=== PATIENT | female | born 1995 | race African-American/Black ===

== ENCOUNTER 2016-10-24 15:06 | Emergency (ER) | payer SELFPAY ==
[~2016-10-24] VITALS: Ht 175.3 cm; Wt 97.5 kg
[~2016-10-24 15:06] MED LIST: ACET-704 PO; CIPR500T94 PO; HYDR-971 PO; METO10TA81 PO; METR500T PO; METR500T4 PO; NAPR500T PO; NITR100C62 PO; OMEP20CA9 PO; ONDA-35 PO; ONDA4TAB10 SL; PNV1TABL25 PO; PROM25TA10 PO; SULF1TAB24 PO; TRAM-29 PO
[2016-10-24 15:28] LABS: BILIRUBIN,URINE NEGATIVE (NEG); GLUCOSE,URINE NEGATIVE (NEG); NITRITE,URINE NEGATIVE (NEG); PH,URINE 6.5; PROTEIN,URINE NEGATIVE (NEG-TRACE); UROBILINOGEN,URINE 0.2 mg/dL (0.2 mg/dL)
[2016-10-24] MEDS ORDERED: ONDANSETRON ODT 4 MG TAB.RAPDIS PO ONE (15:30)
[2016-10-24] MEDS ORDERED: PYRIDOXINE 50 MG TABLET. PO ONE (15:30)
[2016-10-24] MEDS ORDERED: DOXYLAMINE SUCCINATE 25 MG TABLET PO ONE (15:30)
[2016-10-24 15:31] LABS: NEG OBC UR NEG; POS OBC UR POS
[2016-10-24 15:35] LABS: BACTERIA,URINE FEW /HPF (0-FEW); RBC,URINE 0 /HPF (0-2); SQUAMOUS EPITHELIAL CELL,UR FEW /LPF; WBC,URINE 0 /HPF (0-4)
--- NOTE | 2016-10-24 16:17 | PHYS DOC ---
Past Medical History Past Medical History: No Pertinent History Past Surgical History: No Surgical History Alcohol Use: None Drug Use: None Adult General Chief Complaint Chief Complaint: VOMITING IN HPI HPI 20-year-old female presenting the emergency department with nausea with one episode of vomiting. She reports it being of stomach contents. She also endorses pain on urination. The pain is sharp mild worse with urination and without alleviating factors. She reports being approximately 8 weeks . This is her third . She has 2 living children. They were born at full- term. She previously had an ultrasound and recommended repeat ultrasound. She denies any abdominal pain. She denies chest pain or shortness of breath. Review of Systems Review of Systems She denies vaginal bleeding abdominal pain. She denies fevers chills chest pain or shortness of breath. All other review of systems is negative unless otherwise noted in history of present illness. Current Medications Current Medications Current Medications Medications (Trade) Dose Ordered Sig/Christi Start Time Stop Time Status Last Admin Dose Admin Doxylamine Succinate (Unisom) 25 mg 1X ONCE 10/24/16 15:30 10/24/16 15:31 DC 10/24/16 15:53 25 MG Ondansetron HCl (Zofran Odt) 4 mg 1X ONCE 10/24/16 15:30 10/24/16 15:31 DC 10/24/16 15:44 4 MG Pyridoxine HCl (Vitamin B-6) 25 mg 1X ONCE 10/24/16 15:30 10/24/16 15:31 DC 10/24/16 15:53 25 MG Allergies Allergies Allergies Coded Allergies Type Severity Reaction Last Updated Verified peanut Allergy Intermediate itching 10/16/16 Yes Physical Exam Physical Exam Constitutional: Well developed, well nourished, no acute distress, non-toxic appearance. HENT: Normocephalic, atraumatic, bilateral external ears normal, oropharynx moist, no oral exudates, nose normal. Eyes: PERRLA, EOMI, conjunctiva normal, no discharge. Neck: Normal range of motion, no tenderness, supple, no stridor. [] Cardiovascular:Heart rate regular rhythm, no murmur Lungs & Thorax: Bilateral breath sounds clear to auscultation [] Abdomen: Bowel sounds normal, soft, no tenderness, no masses, no pulsatile masses. Skin: Warm, dry, no erythema, no rash. Back: No tenderness, no CVA tenderness. [] Extremities: No tenderness, no cyanosis, no clubbing, ROM intact, no edema. Neurologic: Alert and oriented X 3, normal motor function, normal sensory function, no focal deficits noted. [] Psychologic: Affect normal, judgement normal, mood normal. [] Current Patient Data Vital Signs Vital Signs Date Time Temp Pulse Resp B/P Pulse Ox O2 Delivery O2 Flow Rate FiO2 10/24/16 17:09 79 16 107/53 100 Room Air 10/24/16 15:32 98.8 98.8 Lab Values Laboratory Tests Test 10/24/16 15:14 10/24/16 16:00 Urine Collection Type Unknown Urine Color Yellow Urine Clarity Clear Urine pH 6.5 Urine Specific [place] <=1.005 Urine Protein Negativemg/dL (NEG-TRACE) Urine Glucose (UA) Negativemg/dL (NEG) Urine Ketones (Stick) Negativemg/dL (NEG) Urine Blood Negative (NEG) Urine Nitrite Negative (NEG) Urine Bilirubin Negative (NEG) Urine Urobilinogen Dipstick 0.2mg/dL (0.2 mg/dL) Urine Leukocyte Esterase Negative (NEG) Urine RBC 0/HPF (0-2) Urine WBC 0/HPF (0-4) Urine Squamous Epithelial Cells Few/LPF Urine Bacteria Few/HPF (0-FEW) Urine Test Positive (NEG) White Blood Count 13.0x10^3/uL (4.0-11.0) H Red Blood Count 4.71x10^6/uL (3.50-5.40) Hemoglobin 13.2g/dL (12.0-15.5) Hematocrit 40.4% (36.0-47.0) Mean Corpuscular Volume 86fL (79-100) Mean Corpuscular Hemoglobin 28pg (25-35) Mean Corpuscular Hemoglobin Concent 33g/dL (31-37) Red Cell Distribution Width 13.7% (11.5-14.5) Platelet Count 250x10^3/uL (140-400) Neutrophils (%) (Auto) 64% (31-73) Lymphocytes (%) (Auto) 30% (24-48) Monocytes (%) (Auto) 5% (0-9) Eosinophils (%) (Auto) 1% (0-3) Basophils (%) (Auto) 0% (0-3) Neutrophils # (Auto) 8.3x10^3uL (1.8-7.7) H Lymphocytes # (Auto) 3.9x10^3/uL (1.0-4.8) Monocytes # (Auto) 0.7x10^3/uL (0.0-1.1) Eosinophils # (Auto) 0.1x10^3/uL (0.0-0.7) Basophils # (Auto) 0.0x10^3/uL (0.0-0.2) Maternal Serum HCG Beta Subunit 94427oUF/mL (0-6) H Sodium Level 138mmol/L (136-145) Potassium Level 3.9mmol/L (3.5-5.1) Chloride Level 104mmol/L (98-107) Carbon Dioxide Level 26mmol/L (21-32) Anion Gap 8 (6-14) Blood Urea Nitrogen 6mg/dL (7-20) L Creatinine 0.6mg/dL (0.6-1.0) Estimated GFR (Cockcroft-Gault) 152.7 Glucose Level 81mg/dL (70-99) Calcium Level 8.8mg/dL (8.5-10.1) Total Bilirubin 0.3mg/dL (0.2-1.0) Direct Bilirubin 0.1mg/dL (0.0-0.2) Aspartate Amino Transferase (AST) 12U/L (15-37) L Alanine Aminotransferase (ALT) 13U/L (14-59) L Alkaline Phosphatase 53U/L (46-116) Total Protein 7.1g/dL (6.4-8.2) Albumin 3.6g/dL (3.4-5.0) Lipase 135U/L (73-393) Laboratory Tests 10/24/16 16:00 Laboratory Tests 10/24/16 16:00 EKG EKG [] Radiology/Procedures Radiology/Procedures [facility] [address] [place] [address] IMAGING REPORT Signed PATIENT: MARK THORNTON ACCOUNT: [id number] : 1995 LOCATION: ER AGE: 20 SEX: F EXAM STATUS: REG ER ORD. PHYSICIAN: DANIELLE PINTO MD REASON: nausea vomiting in preg, r/o ectopic PROCEDURE: PREG 1ST TRIMESTER INDICATION: Vomiting and COMPARISON: None TECHNIQUE: Transabdominal grayscale and spectral doppler ultrasound images are obtained of the pelvis. FINDINGS: Dimensions are in mm Uterus: 98 x 82 x 76 Endometrial Stripe: Intrauterine is identified with crown-rump length of 14 millimeters and heart rate of 163 Right ovary: 27 x 21 x 14 Left ovary: 42 x 30 x 28 Vascular flow is identified to the bilateral ovaries. IMPRESSION: Intrauterine is identified with estimated gestational age of 7 weeks and 5 days with estimated due date of 06/07/2017. There is a positive heart rate identified. Recommend routine anomaly screening at 18-22 weeks. Electronically signed by: Sravanthi Das (Oct 24, 2016 17:04:59) DICTATED and SIGNED BY: SRAVANTHI DAS MD DATE: 10/24/16 1709 CC: DANIELLE PINTO MD; NO PCP ~ [] Course & Med Decision Making Course & Med Decision Making Pertinent Labs and Imaging studies reviewed. (See chart for details) 20-year-old female presenting the emergency department with pain on urination and nausea with vomiting. On evaluation patient's vital signs were unremarkable. Physical exam was unremarkable. The patient is given paradoxical and doxylamine along with ondansetron for nausea control. Urine analysis shows positive tests not suggestive of infection. A few bacteria present. Blood work otherwise unremarkable. Ultrasound demonstrated a viable single fetus intrauterine . No evidence of ectopic present. She was subsequently discharged home on Keflex for bacteria in the urine. She was to follow-up with Dr. Quiroz over the next 3-5 days. Dragon Disclaimer Dragon Disclaimer This electronic medical record was generated, in whole or in part, using a voice recognition dictation system. Departure Departure Impression: Primary Impression: Nausea/vomiting in Disposition: HOME, SELF-CARE Condition: STABLE Referrals: NO PCP (PCP) COCO QUIROZ Jr, MD Patient Instructions: Nausea and Vomiting, [id number] Additional Instructions: Thank you for allowing us to participate in your care today. Followup with Dr. Quiroz in 3-5 days. if your symptoms do not improve. If you do not have a primary care provider you can ask for a list of our primary care providers. Return to the emergency department you have any new or concerning findings. This should be evaluated by the primary care physician and any necessary consulting services for continued management within a few days after discharge. Return to emergency room if you have any new or concerning symptoms including but not limited to fever, chills, nausea, vomiting, intractable pain, any new rashes, chest pain, shortness of air, uncontrolled bleeding, difficulty breathing, and/or vision loss. You may have been prescribed medication that can change in your level of thinking and ability to operate machinery. These medications include hydrocodone and Ativan. Also, Benadryl has been known to do this as well. Be sure to check with your pharmacist and ask if the medications you've prescribed can affect your level of consciousness. I recommend not operating heavy machinery or driving while on medication such as these. Scripts Cephalexin (Keflex)500 Mg Capsule1 Cap PO BID #14 CAP Prov:DANIELLE PINTO MD 10/24/16 Doxylamine/Pyridoxine Hcl (Tyrell Reyes 10-10 Mg Tablet)1 Each Tablet.dr1 Each PO PRN BID PRN NAUSEA #5 Prov:DANIELLE PINTO MD 10/24/16 DANIELLE PINTO MD Oct 24, 2016 16:17
[2016-10-24 16:19] LABS: BASO % 0 % (0-3); EOS % 1 % (0-3); HEMATOCRIT 40.4 % (36.0-47.0); HEMOGLOBIN 13.2 g/dL (12.0-15.5); LYMPH # 3.9 x10^3/uL (1.0-4.8); LYMPH % 30 % (24-48); MEAN CORPUSCULAR HEMOGLOBIN 28 pg (25-35); MEAN CORPUSCULAR HGB CONC 33 g/dL (31-37); MEAN CORPUSCULAR VOLUME 86 fL (79-100); MONO % 5 % (0-9); NEUT % 64 % (31-73); PLATELET COUNT 250 x10^3/uL (140-400); RED BLOOD COUNT 4.71 x10^6/uL (3.50-5.40); RED CELL DISTRIBUTION WIDTH 13.7 % (11.5-14.5)
[2016-10-24 16:28] LABS: CALCIUM 8.8 mg/dL (8.5-10.1); CREATININE 0.6 mg/dL (0.6-1.0); GFR 152.7; POTASSIUM 3.9 mmol/L (3.5-5.1)
[2016-10-24 16:39] LABS: ALBUMIN 3.6 g/dL (3.4-5.0); DIRECT BILIRUBIN 0.1 mg/dL (0.0-0.2); TOTAL BILIRUBIN 0.3 mg/dL (0.2-1.0); TOTAL PROTEIN 7.1 g/dL (6.4-8.2)
--- NOTE | 2016-10-24 17:06 | RAD ---
INDICATION: Vomiting and COMPARISON: None TECHNIQUE: Transabdominal grayscale and spectral doppler ultrasound images are obtained of the pelvis. FINDINGS: Dimensions are in mm Uterus: 98 x 82 x 76 Endometrial Stripe: Intrauterine is identified with crown-rump length of 14 millimeters and heart rate of 163 Right ovary: 27 x 21 x 14 Left ovary: 42 x 30 x 28 Vascular flow is identified to the bilateral ovaries. IMPRESSION: Intrauterine is identified with estimated gestational age of 7 weeks and 5 days with estimated due date of 06/07/2017. There is a positive heart rate identified. Recommend routine anomaly screening at 18-22 weeks. Electronically signed by: Cameron Rider (Oct 24, 2016 17:04:59)
[2016-10-24 17:09] VITALS: BP 107/53
[2016-10-24] MEDS ORDERED: DOXY1TAB3 PO (17:14)
[2016-10-24] MEDS ORDERED: CEPH-264 PO (17:35)
== END 2016-10-24 17:38 | disposition home or self-care (01) ==
LOC: ER 15:06
DX: O21.9 Vomiting of pregnancy, unspecified (principal); R11.0 Nausea; Z3A.08 8 weeks gestation of pregnancy; R30.9 Painful micturition, unspecified; Z91.010 Allergy to peanuts
CPT/HCPCS: 36415; 76801; 80048; 80076; 81001; 81025; 83690; 84702; 85027; 86901; 99285; Q0162

== ENCOUNTER 2016-11-08 10:27 | Emergency (ER) | payer SELFPAY ==
[~2016-11-08] VITALS: Ht 175.3 cm; Wt 95.3 kg
[~2016-11-08 10:27] MED LIST changes: +CEPH-264 PO; +DOXY1TAB3 PO
[2016-11-08] MEDS ORDERED: IV NORMAL SALINE 1000ML BAG 1,000 ML IV ONE (11:30)
[2016-11-08] MEDS ORDERED: PROMETHAZINE 12.5 MG in IV NORMAL SALINE 50ML 50 ML IV ONE (11:30)
[2016-11-08 11:38] LABS: BILIRUBIN,URINE NEGATIVE (NEG); GLUCOSE,URINE NEGATIVE (NEG); NITRITE,URINE NEGATIVE (NEG); PH,URINE 6.5; PROTEIN,URINE NEGATIVE (NEG-TRACE)
[2016-11-08 11:48] LABS: BACTERIA,URINE FEW /HPF (0-FEW); RBC,URINE 0 /HPF (0-2); SQUAMOUS EPITHELIAL CELL,UR MANY /LPF; YEAST,URINE PRESENT /HPF
[2016-11-08 12:04] LABS: BASO % 0 % (0-3); EOS % 1 % (0-3); HEMATOCRIT 40.1 % (36.0-47.0); HEMOGLOBIN 13.3 g/dL (12.0-15.5); LYMPH # 3.2 x10^3/uL (1.0-4.8); LYMPH % 27 % (24-48); MEAN CORPUSCULAR HEMOGLOBIN 28 pg (25-35); MEAN CORPUSCULAR HGB CONC 33 g/dL (31-37); MEAN CORPUSCULAR VOLUME 84 fL (79-100); MONO % 5 % (0-9); NEUT % 67 % (31-73); PLATELET COUNT 251 x10^3/uL (140-400); RED BLOOD COUNT 4.75 x10^6/uL (3.50-5.40); RED CELL DISTRIBUTION WIDTH 13.7 % (11.5-14.5); WHITE BLOOD COUNT 11.8 x10^3/uL (4.0-11.0)
[2016-11-08 12:15] LABS: CREATININE 0.6 mg/dL (0.6-1.0); GFR 151.3; POTASSIUM 4.1 mmol/L (3.5-5.1)
[2016-11-08] MEDS ORDERED: CEFTRIAXONE 1GM IVPB FOR OMNI 50 ML IV ONE (13:15)
[2016-11-08] MEDS ORDERED: PROC10TA57 PO (13:34)
[2016-11-08] MEDS ORDERED: NITR100C63 PO (13:34)
--- NOTE | 2016-11-08 13:35 | PHYS DOC ---
Past Medical History Past Medical History: No Pertinent History Past Surgical History: No Surgical History Alcohol Use: None Drug Use: None Adult General Chief Complaint Chief Complaint: HEMATEMESIS/VOMITING BLOOD HPI HPI Patient is a 21 year old female 4 para 3 currently 9 weeks who presents today with nausea vomiting in that began yesterday evening. Patient states she had small amount of blood in her emesis this morning and is very concerned. Patient's also complaining of right flank pain which she's had for weeks. She states she was diagnosed with UTI and was put on Keflex which she just finished recently. Patient denies any abdominal pain. Denies any vaginal bleeding. Denies any back cramping. Review of Systems Review of Systems Constitutional: Denies fever or chills [] Eyes: Denies change in visual acuity, redness, or eye pain [] HENT: Denies nasal congestion or sore throat [] Respiratory: Denies cough or shortness of breath [] Cardiovascular: No additional information not addressed in HPI [] GI: Nausea and vomiting in : Right flank pain Musculoskeletal: Denies back pain or joint pain [] Integument: Denies rash or skin lesions [] Neurologic: Denies headache, focal weakness or sensory changes [] Endocrine: Denies polyuria or polydipsia [] Current Medications Current Medications Current Medications Medications (Trade) Dose Ordered Sig/Christi Start Time Stop Time Status Last Admin Dose Admin Ceftriaxone Sodium (Rocephin 1gm Ivpb For Omni) 50 ml @ 100 mls/hr 1X ONCE 11/08/16 13:15 11/08/16 13:44 11/08/16 13:18 100 MLS/HR Promethazine HCl 12.5 mg/Sodium Chloride 50.5 ml @ 101 mls/hr 1X ONCE 11/08/16 11:30 11/08/16 11:59 DC 11/08/16 12:00 101 MLS/HR Sodium Chloride 1,000 ml @ 1,000 mls/hr 1X ONCE 11/08/16 11:30 11/08/16 12:29 DC 11/08/16 12:00 1,000 MLS/HR Allergies Allergies Allergies Coded Allergies Type Severity Reaction Last Updated Verified peanut Allergy Intermediate itching 10/16/16 Yes Physical Exam Physical Exam Constitutional: Well developed, well nourished, no acute distress, non-toxic appearance. [] HENT: Normocephalic, atraumatic, bilateral external ears normal, oropharynx moist, no oral exudates, nose normal. [] Eyes: PERRLA, EOMI, conjunctiva normal, no discharge. [] Neck: Normal range of motion, no tenderness, supple, no stridor. [] Cardiovascular:Heart rate regular rhythm, no murmur [] Lungs & Thorax: Bilateral breath sounds clear to auscultation [] Abdomen: Bowel sounds normal, soft, no tenderness, no masses, no pulsatile masses. [] Skin: Warm, dry, no erythema, no rash. [] Back: No tenderness, no CVA tenderness. [] Extremities: No tenderness, no cyanosis, no clubbing, ROM intact, no edema. [] Neurologic: Alert and oriented X 3, normal motor function, normal sensory function, no focal deficits noted. [] Psychologic: Affect normal, judgement normal, mood normal. [] Current Patient Data Vital Signs Vital Signs Date Time Temp Pulse Resp B/P Pulse Ox O2 Delivery O2 Flow Rate FiO2 11/08/16 10:38 98.8 88 18 137/59 98 Room Air 98.8 Lab Values Laboratory Tests Test 11/08/16 11:05 11/08/16 11:45 Urine Collection Type Void Urine Color Yellow Urine Clarity Clear Urine pH 6.5 Urine Specific [place] 1.020 Urine Protein Negativemg/dL (NEG-TRACE) Urine Glucose (UA) Negativemg/dL (NEG) Urine Ketones (Stick) Negativemg/dL (NEG) Urine Blood Negative (NEG) Urine Nitrite Negative (NEG) Urine Bilirubin Negative (NEG) Urine Urobilinogen Dipstick 1.0mg/dL (0.2 mg/dL) Urine Leukocyte Esterase Moderate (NEG) Urine RBC 0/HPF (0-2) Urine WBC 5-10/HPF (0-4) Urine Squamous Epithelial Cells Many/LPF Urine Bacteria Few/HPF (0-FEW) Urine Mucus Marked/LPF Urine Yeast Present/HPF White Blood Count 11.8x10^3/uL (4.0-11.0) H Red Blood Count 4.75x10^6/uL (3.50-5.40) Hemoglobin 13.3g/dL (12.0-15.5) Hematocrit 40.1% (36.0-47.0) Mean Corpuscular Volume 84fL (79-100) Mean Corpuscular Hemoglobin 28pg (25-35) Mean Corpuscular Hemoglobin Concent 33g/dL (31-37) Red Cell Distribution Width 13.7% (11.5-14.5) Platelet Count 251x10^3/uL (140-400) Neutrophils (%) (Auto) 67% (31-73) Lymphocytes (%) (Auto) 27% (24-48) Monocytes (%) (Auto) 5% (0-9) Eosinophils (%) (Auto) 1% (0-3) Basophils (%) (Auto) 0% (0-3) Neutrophils # (Auto) 7.8x10^3uL (1.8-7.7) H Lymphocytes # (Auto) 3.2x10^3/uL (1.0-4.8) Monocytes # (Auto) 0.6x10^3/uL (0.0-1.1) Eosinophils # (Auto) 0.1x10^3/uL (0.0-0.7) Basophils # (Auto) 0.0x10^3/uL (0.0-0.2) Maternal Serum HCG Beta Subunit 40733oII/mL (0-6) H Sodium Level 139mmol/L (136-145) Potassium Level 4.1mmol/L (3.5-5.1) Chloride Level 104mmol/L (98-107) Carbon Dioxide Level 26mmol/L (21-32) Anion Gap 9 (6-14) Blood Urea Nitrogen 6mg/dL (7-20) L Creatinine 0.6mg/dL (0.6-1.0) Estimated GFR (Cockcroft-Gault) 151.3 Glucose Level 77mg/dL (70-99) Calcium Level 9.0mg/dL (8.5-10.1) Laboratory Tests 11/08/16 11:45 Laboratory Tests 11/08/16 11:45 EKG EKG [] Radiology/Procedures Radiology/Procedures [] Course & Med Decision Making Course & Med Decision Making Pertinent Labs and Imaging studies reviewed. (See chart for details) This is a 9 week patient who presents with nausea and vomiting since yesterday. She states she had some blood in her vomit. Patient denies any abdominal pain or vaginal bleeding. CB Beta hCG 72,746. CBC with a WBC of 11.8, CMP with no acute findings, urine positive for infection as well as yeast though it looks contaminated. I did put her on Macrodantin. Requested her to use [id number] miconazole for vaginal yeast infection. Recommended she follows up with her ANIMAL CONTROL SUPERVISOR or the provided ANIMAL CONTROL SUPERVISOR as soon as possible. She has not seen an OB in this due to insurance issues. Discharge her with Compazine. She is in no distress. She has not vomited even a single time in the ED. She was also given a liter of fluid provided return precautions and discharged in stable condition. Dragon Disclaimer Dragon Disclaimer This electronic medical record was generated, in whole or in part, using a voice recognition dictation system. Departure Departure Impression: Primary Impression: Hyperemesis gravidarum Additional Impressions: Yeast infection Urinary tract infection Disposition: HOME, SELF-CARE Condition: IMPROVED Referrals: NO PCP (PCP) COCO BRADY Jr, MD See him in one to three days Patient Instructions: Hyperemesis Gravidarum Additional Instructions: You were seen for nausea vomiting in . Use the prescribed antinausea medicines as ordered. Your urine was also positive for UTI infection as well as he Yeast. Kindly complete your antibiotics. Consider using [id number] miconazole inserts for vaginal yeast infection. Follow up with an OBGYN as soon as possible. Return to the Ed if symptoms worsen Scripts Prochlorperazine Maleate (Compazine)10 Mg Gpdaja01 Mg PO Q8HRS PRN NAUSEA #30 TAB Prov:CAN FROST APRN 11/08/16 Nitrofurantoin Macrocrystal (Macrodantin)100 Mg Capsule1 Cap PO BID #14 CAP Prov:CAN FROST APRN 11/08/16 Problem Qualifiers Additional Impressions: Urinary tract infection Urinary tract infection type: acute cystitis Hematuria presence: without hematuria Qualified Code: N30.00 - Acute cystitis without hematuria CAN FROST APRN Nov 08, 2016 13:35
[2016-11-08 14:10] VITALS: BP 103/54
== END 2016-11-08 14:11 | disposition home or self-care (01) ==
LOC: ER 10:27
DX: O21.0 Mild hyperemesis gravidarum (principal); O23.41 Unspecified infection of urinary tract in pregnancy, first trimester; B37.9 Candidiasis, unspecified; N30.00 Acute cystitis without hematuria; Z3A.09 9 weeks gestation of pregnancy; Z91.010 Allergy to peanuts
CPT/HCPCS: 36415; 80048; 81001; 84702; 85027; 96361; 96365; 96367; 99284; J0690; J2550; J7030; 87086

== ENCOUNTER 2017-01-12 14:08 | Emergency (ER) | payer OTHER ==
[~2017-01-12] VITALS: Ht 175.3 cm; Wt 98.4 kg
[~2017-01-12 14:08] MED LIST changes: +NITR100C63 PO; +PROC10TA57 PO
[2017-01-12 15:34] LABS: BILIRUBIN,URINE NEGATIVE (NEG); GLUCOSE,URINE NEGATIVE (NEG); NITRITE,URINE NEGATIVE (NEG); PH,URINE 6.5; PROTEIN,URINE NEGATIVE (NEG-TRACE)
[2017-01-12 16:00] LABS: BASO % 0 % (0-3); EOS % 1 % (0-3); HEMATOCRIT 39.3 % (36.0-47.0); HEMOGLOBIN 12.8 g/dL (12.0-15.5); LYMPH # 3.5 x10^3/uL (1.0-4.8); LYMPH % 24 % (24-48); MEAN CORPUSCULAR HEMOGLOBIN 28 pg (25-35); MEAN CORPUSCULAR HGB CONC 33 g/dL (31-37); MEAN CORPUSCULAR VOLUME 87 fL (79-100); MONO % 5 % (0-9); NEUT % 71 % (31-73); PLATELET COUNT 196 x10^3/uL (140-400); RED BLOOD COUNT 4.54 x10^6/uL (3.50-5.40); RED CELL DISTRIBUTION WIDTH 13.6 % (11.5-14.5); WHITE BLOOD COUNT 14.4 x10^3/uL (4.0-11.0)
[2017-01-12 16:02] LABS: BACTERIA,URINE 0 /HPF (0-FEW); RBC,URINE 0 /HPF (0-2); SQUAMOUS EPITHELIAL CELL,UR MOD /LPF
[2017-01-12 16:03] LABS: YEAST,URINE PRESENT /HPF
[2017-01-12 16:12] LABS: CALCIUM 8.8 mg/dL (8.5-10.1); CREATININE 0.6 mg/dL (0.6-1.0); GFR 151.3; POTASSIUM 3.8 mmol/L (3.5-5.1)
[2017-01-12 16:15] LABS: ALBUMIN 2.8 g/dL (3.4-5.0); ALBUMIN/GLOBULIN RATIO 0.7 (1.0-1.7); TOTAL BILIRUBIN 0.2 mg/dL (0.2-1.0); TOTAL PROTEIN 6.6 g/dL (6.4-8.2)
--- NOTE | 2017-01-12 16:32 | RAD ---
Obstetrical ultrasound-limited, 01/12/2017: History: Right-sided pelvic pain, blood in urine There is a single intrauterine fetus present in a transverse orientation. The biparietal diameter measures 4.4 cm compatible with a gestational age of 19 weeks and 1 day. This corresponds well with the other measurements and yields a sonographic EDC of 06/06/2017. This correlates well with the EDC of 06/07/2017 established on the previous ultrasound exam of 10/24/2016. Normal activity and heart motion were seen. A full survey was not performed at this time. The placenta lies posteriorly extending into the fundal region. There is no evidence of a placenta previa. The cervical length is 4.5 cm. A normal amount of amniotic fluid is evident. Limited views of the right lower quadrant show no abnormality. The appendix is not visualized. IMPRESSION: Single viable uterine fetus of approximately 19-20 weeks gestational age.
[2017-01-12 16:35] VITALS: BP 121/78
--- NOTE | 2017-01-12 16:40 | PHYS DOC ---
Past Medical History Past Medical History: No Pertinent History Past Surgical History: No Surgical History Alcohol Use: None Drug Use: None Adult General Chief Complaint Chief Complaint: BLOOD IN URINE HPI HPI Patient is a 21 year old female who presents after episode of hematuria. Patient reports she is currently at 19 weeks gestational age. She reports she went to the bathroom today, noticed some blood in urine. She has urinated since then with no blood. No dysuria, no vaginal bleeding. No vaginal discharge. She also reports some right pelvic pain for the past 4 hours that she describes a sharp. No clear inciting or mitigating factors. She has taken some Tylenol for the pain. No other acute complaints. Review of Systems Review of Systems Constitutional: Denies fever or chills Eyes: Denies change in visual acuity or eye pain HENT: Denies nasal congestion or sore throat Respiratory: Denies cough or shortness of breath Cardiovascular: Denies chest pain GI: Denies abdominal pain, nausea, vomiting, bloody stools or diarrhea : Hematuria, R pelvic pain. Denies dysuria, vaginal bleeding, discharge Musculoskeletal: Denies back pain or joint pain Integument: Denies rash or skin lesions Neurologic: Denies headache, focal weakness or sensory changes Allergies Allergies Allergies Coded Allergies Type Severity Reaction Last Updated Verified peanut Allergy Intermediate itching 10/16/16 Yes Physical Exam Physical Exam Constitutional: Well developed, well nourished, no acute distress, non-toxic appearance HENT: Normocephalic, atraumatic, bilateral external ears normal Eyes: EOMI, conjunctiva normal, no discharge Neck: Normal range of motion, no stridor Cardiovascular: Heart rate normal, regular rhythm, no murmur Lungs & Thorax: Bilateral breath sounds clear to auscultation Abdomen: Bowel sounds normal, soft, non-distended, mild suprapubic TTP without guarding or rebound Pelvic: No blood in vault. Small amount thick white discharge. No CMT or adnexal tenderness Skin: Warm, dry, no erythema, no rash Extremities: No obvious deformity, no edema Neurologic: Alert and oriented X 3, no gross deficits noted Current Patient Data Vital Signs Vital Signs Date Time Temp Pulse Resp B/P Pulse Ox O2 Delivery O2 Flow Rate FiO2 01/12/17 16:35 83 16 121/78 99 Room Air 01/12/17 14:11 98.4 98.4 Lab Values Laboratory Tests Test 01/12/17 14:34 01/12/17 15:50 Urine Collection Type Unknown Urine Color Yellow Urine Clarity Clear Urine pH 6.5 Urine Specific [place] 1.020 Urine Protein Negativemg/dL (NEG-TRACE) Urine Glucose (UA) Negativemg/dL (NEG) Urine Ketones (Stick) Negativemg/dL (NEG) Urine Blood Negative (NEG) Urine Nitrite Negative (NEG) Urine Bilirubin Negative (NEG) Urine Urobilinogen Dipstick 1.0mg/dL (0.2 mg/dL) Urine Leukocyte Esterase Small (NEG) Urine RBC 0/HPF (0-2) Urine WBC 1-4/HPF (0-4) Urine Squamous Epithelial Cells Mod/LPF Urine Amorphous Sediment Present/HPF Urine Bacteria 0/HPF (0-FEW) Urine Mucus Mod/LPF Urine Yeast Present/HPF White Blood Count 14.4x10^3/uL (4.0-11.0) H Red Blood Count 4.54x10^6/uL (3.50-5.40) Hemoglobin 12.8g/dL (12.0-15.5) Hematocrit 39.3% (36.0-47.0) Mean Corpuscular Volume 87fL (79-100) Mean Corpuscular Hemoglobin 28pg (25-35) Mean Corpuscular Hemoglobin Concent 33g/dL (31-37) Red Cell Distribution Width 13.6% (11.5-14.5) Platelet Count 196x10^3/uL (140-400) Neutrophils (%) (Auto) 71% (31-73) Lymphocytes (%) (Auto) 24% (24-48) Monocytes (%) (Auto) 5% (0-9) Eosinophils (%) (Auto) 1% (0-3) Basophils (%) (Auto) 0% (0-3) Neutrophils # (Auto) 10.2x10^3uL (1.8-7.7) H Lymphocytes # (Auto) 3.5x10^3/uL (1.0-4.8) Monocytes # (Auto) 0.6x10^3/uL (0.0-1.1) Eosinophils # (Auto) 0.1x10^3/uL (0.0-0.7) Basophils # (Auto) 0.0x10^3/uL (0.0-0.2) Maternal Serum HCG Beta Subunit 32030pEO/mL (0-6) H Sodium Level 139mmol/L (136-145) Potassium Level 3.8mmol/L (3.5-5.1) Chloride Level 103mmol/L (98-107) Carbon Dioxide Level 27mmol/L (21-32) Anion Gap 9 (6-14) Blood Urea Nitrogen 5mg/dL (7-20) L Creatinine 0.6mg/dL (0.6-1.0) Estimated GFR (Cockcroft-Gault) 151.3 BUN/Creatinine Ratio 8 (6-20) Glucose Level 75mg/dL (70-99) Calcium Level 8.8mg/dL (8.5-10.1) Total Bilirubin 0.2mg/dL (0.2-1.0) Aspartate Amino Transferase (AST) 9U/L (15-37) L Alanine Aminotransferase (ALT) 12U/L (14-59) L Alkaline Phosphatase 60U/L (46-116) Total Protein 6.6g/dL (6.4-8.2) Albumin 2.8g/dL (3.4-5.0) L Albumin/Globulin Ratio 0.7 (1.0-1.7) L Laboratory Tests 01/12/17 15:50 Laboratory Tests 01/12/17 15:50 Microbiology 01/12/17 Wet Prep - Final, Complete EKG EKG [] Radiology/Procedures Radiology/Procedures Pelvic US: IMPRESSION: Single viable uterine fetus of approximately 19-20 weeks gestational age. Course & Med Decision Making Course & Med Decision Making Pertinent Labs and Imaging studies reviewed. (See chart for details) Patient is 21-year-old female who presents with episode of hematuria and pelvic pain. Possible UTI. Will check pelvic swabs, basic labs, pelvic US (and evaluate appendix if possible, although suspicion for appendicitis is very low) . Has already had tylenol. Labs notable for mild leukocytosis; however patient' s recent labs have all extremities leukocytosis. Also notable for yeast on pelvic swab and in urine. No blood noted on UA. Discussed results with patient. Discussed with Dr. Greenberg, patient's HOUSING COORDINATOR. Ok to send patient home, will treat for yeast infection as well as possible UTI. He will also see patient in his clinic tomorrow for follow up. Discussed plan with patient, who is agreeable. Will discharge with rx for miconazole suppositories, macrobid, instructions for follow up, return precautions. Marco A Disclaimer Marco A Disclaimer This electronic medical record was generated, in whole or in part, using a voice recognition dictation system. Departure Departure Impression: Primary Impression: Pelvic pain affecting Additional Impression: Yeast infection Disposition: HOME, SELF-CARE Condition: STABLE Referrals: CHARLENE GREENBERG MD (PCP) Patient Instructions: Abdominal Pain During , [place] Infection, Adult Additional Instructions: Thank you for allowing us to provide care today in the Emergency Department. Take the provided medication as directed. You have a follow up appointment with Dr. Greenberg tomorrow at 3:00pm. Return promptly to the Emergency Department if you develop any new or concerning symptoms. Scripts Miconazole Nitrate 100 Mg Supp.vys094 Mg VG QHS 7 Days Prov:MARIA ELENA MONTANEZ MD 01/12/17 Nitrofurantoin Monohyd/M-Cryst (Macrobid 100 Mg Capsule)100 Mg Capsule1 Cap PO BID #10 CAP Prov:MARIA ELENA MONTANEZ MD 01/12/17 Problem Qualifiers MARIA ELENA MONTANEZ MD Jan 12, 2017 16:39
[2017-01-12] MEDS ORDERED: NITR100C62 PO (17:17)
[2017-01-12] MEDS ORDERED: [UNRECOGNIZED DRUG - CODE] VG (17:17)
--- NOTE | 2017-01-15 10:50 | VNOTE ---
CALL BACK NOTE CALL BACK Microbiology 01/12/17 Wet Prep - Final, Complete 01/12/17 Urine Culture - Final, Complete 01/12/17 Urine Culture Result 1 (SANDRA) - Final, Complete Patient was seen here 01/12. She is and was due to follow up with Dr. Greenberg. I contacted Dr. Greenberg's office. Dr. Greenberg states patient showed up yesterday and then left prior to being seen. He has been made aware of her positive chlamydia PCR. I contacted patient at 1045. I made her aware of her test results being positive. I urged her to follow-up with Dr. Greenberg. Prescription for 1 g of azithromycin in a single dose was called into the [facility]. MAIN SINCLAIR Jan 15, 2017 10:50
== END 2017-01-12 17:30 | disposition home or self-care (01) ==
LOC: ER 14:08
DX: O26.892 Other specified pregnancy related conditions, second trimester (principal); R10.2 Pelvic and perineal pain; O98.812 Other maternal infectious and parasitic diseases complicating pregnancy, second trimester; Z3A.19 19 weeks gestation of pregnancy; R31.9 Hematuria, unspecified; Z91.010 Allergy to peanuts
CPT/HCPCS: 36415; 76815; 80053; 81001; 84702; 85027; 86900; 86901; 87086; 87491; 87591; 99285; Q0111

== ENCOUNTER 2017-01-20 19:59 | Observation (INO) | payer OTHER ==
[~2017-01-20 19:59] MED LIST changes: +[UNRECOGNIZED DRUG - CODE] VG
[2017-01-20 20:26] LABS: BILIRUBIN,URINE NEGATIVE (NEG); GLUCOSE,URINE NEGATIVE (NEG); NITRITE,URINE NEGATIVE (NEG); PROTEIN,URINE NEGATIVE (NEG-TRACE)
[2017-01-20 20:30] LABS: BACTERIA,URINE 0 /HPF (0-FEW); RBC,URINE 0 /HPF (0-2); SQUAMOUS EPITHELIAL CELL,UR FEW /LPF; WBC,URINE OCC /HPF (0-4)
[2017-01-20 20:34] LABS: BARBITURATES NEG (NEG); BENZODIAZEPINES NEG (NEG); CANNABINOIDS NEG (NEG); COCAINE NEG (NEG); ETHANOL, URINE NEG (NEG); METHADONE NEG (NEG); OPIATES NEG (NEG); PHENCYCLIDINE NEG (NEG)
== END 2017-01-20 21:13 | disposition home or self-care (01) ==
LOC: 3 SO LND 19:59
PROVIDERS: ADMIT Specialist; ATTEND Specialist
DX: O26.892 Other specified pregnancy related conditions, second trimester (principal); M54.5 Low back pain; R10.30 Lower abdominal pain, unspecified; R07.89 Other chest pain; Z3A.20 20 weeks gestation of pregnancy
CPT/HCPCS: 81001; G0378; G0379; G0481

== ENCOUNTER 2017-01-20 21:21 | Emergency (ER) | payer OTHER ==
[~2017-01-20] VITALS: Ht 175.3 cm; Wt 98.4 kg
--- NOTE | 2017-01-20 22:33 | PHYS DOC ---
Past Medical History Past Medical History: No Pertinent History Past Surgical History: No Surgical History Alcohol Use: None Drug Use: None Adult General Chief Complaint Chief Complaint: CHEST WALL PAIN HPI HPI Patient is a 21 year old female who presents here today secondary to pain to her lower back and chest after falling apparently 5 steps around noontime. Patient reports that she talked to the nurse over the phone and they recommended that she come to the ER around noon time. Patient came to the ER approximately 8 PM the pain was not getting any better. Patient is 4 para 3. Patient denies any vaginal bleeding or vaginal discharge. Patient has any abdominal pain. Patient landed on her abdomen. Patient reports that she felt dizzy prior to falling however had no loss of consciousness. Patient has any fevers shakes chills nausea vomiting diarrhea dysuria frequency or urgency. Patient was recently treated for chlamydia. Patient denies any head trauma. Patient's physical exam was significant for some mild tenderness to palpation in her lower back. Patient had no point bony seeped spine T-spine or L-spine tenderness. Patient has no abdominal tenderness to palpation. Patient's some mild right-sided chest wall tenderness to palpation. There is no bruising deformity crepitance or any other maladies that'll be concerning for fractures. Patient's ER workup consistent of a normal i-STAT with any evidence of an anemia or any abnormalities. Patient's heart tones were 146. A/P #1 stable #2. Fall patient clinically hemodynamically stable. Patient be treated with Tylenol for pain. We'll for discharge. Review of Systems Review of Systems Constitutional: Denies fever or chills [] Eyes: Denies change in visual acuity, redness, or eye pain [] HENT: Denies nasal congestion or sore throat [] All other review systems are negative except as documented in the history of present illness portion Current Medications Current Medications Current Medications Medications (Trade) Dose Ordered Sig/Christi Start Time Stop Time Status Last Admin Dose Admin Acetaminophen (Tylenol) 650 mg 1X ONCE 01/20/17 23:00 01/20/17 23:01 DC 01/20/17 22:50 650 MG Allergies Allergies Allergies Coded Allergies Type Severity Reaction Last Updated Verified peanut Allergy Intermediate itching 10/16/16 Yes Physical Exam Physical Exam Constitutional: Well developed, well nourished, no acute distress, non-toxic appearance. [] HENT: Normocephalic, atraumatic, bilateral external ears normal, oropharynx moist, no oral exudates, nose normal. [] Eyes: PERRLA, EOMI, conjunctiva normal, no discharge. [] Neck: Normal range of motion, no tenderness, supple, no stridor. [] Cardiovascular:Heart rate regular rhythm, no murmur [] Lungs & Thorax: Bilateral breath sounds clear to auscultation [] Abdomen: Bowel sounds normal, soft, no tenderness, no masses, no pulsatile masses. [] Skin: Warm, dry, no erythema, no rash. [] Back: No tenderness, no CVA tenderness. [] Extremities: No tenderness, no cyanosis, no clubbing, ROM intact, no edema. [] Neurologic: Alert and oriented X 3, normal motor function, normal sensory function, no focal deficits noted. [] Psychologic: Affect normal, judgement normal, mood normal. [] Current Patient Data Vital Signs Vital Signs Date Time Temp Pulse Resp B/P Pulse Ox O2 Delivery O2 Flow Rate FiO2 01/20/17 22:42 76 18 93/55 98 Room Air 01/20/17 21:31 98.6 98.6 Lab Values Laboratory Tests Test 01/20/17 22:20 01/20/17 22:38 POC Troponin I 0.00ng/ml (<0.08) POC Hemoglobin 13.3g/dL (12-15) POC Hematocrit 39% (36-40) POC Sodium 138mmol/L (135-145) POC Potassium 3.5mmol/L (3.5-5.0) POC Chloride 102mmol/L (98-110) POC Total CO2 23mmol/L (23-32) Anion Gap 18mmol/L (6-14) H POC Blood Urea Nitrogen 3mg/dL (8-26) L POC Creatinine 0.4mg/dL (0.5-1.4) L Glucose Level 77mg/dL (70-99) POC Ionized Calcium (Rogelio) 1.22mmol/L (1.13-1.32) Laboratory Tests 01/20/17 22:38 EKG EKG [] Radiology/Procedures Radiology/Procedures [] Course & Med Decision Making Course & Med Decision Making Pertinent Labs and Imaging studies reviewed. (See chart for details) [] Dragon Disclaimer Dragon Disclaimer This electronic medical record was generated, in whole or in part, using a voice recognition dictation system. Departure Departure Impression: Primary Impression: Additional Impressions: Fall down steps Low back pain Chest wall pain Disposition: HOME, SELF-CARE Condition: IMPROVED Referrals: NO PCP (PCP) Patient Instructions: ABCs of , Dizziness, Fall Prevention and Home Safety, Low Back Sprain with [facility] Additional Instructions: Follow up with your OB doctor. Tylenol as needed for pain. Problem Qualifiers LUIS ANTONIO CARDENAS MD Jan 20, 2017 22:33
[2017-01-20 22:42] VITALS: BP 93/55
[2017-01-20 22:57] LABS: POTASSIUM ISTAT 3.5 mmol/L (3.5-5.0)
[2017-01-20] MEDS ORDERED: ACETAMINOPHEN 325 MG TABLET. PO ONE (23:00)
--- NOTE | 2017-01-21 06:17 | EKG ---
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
== END 2017-01-20 22:55 | disposition home or self-care (01) ==
LOC: ER 21:21
DX: O26.892 Other specified pregnancy related conditions, second trimester (principal); Z3A.20 20 weeks gestation of pregnancy; R07.89 Other chest pain; M54.5 Low back pain
CPT/HCPCS: 80047; 84484; 93005; 99284

== ENCOUNTER 2017-02-24 16:06 | Observation (INO) | payer OTHER ==
[~2017-02-24] VITALS: Ht 175.3 cm; Wt 108.9 kg
== END 2017-02-24 17:38 | disposition home or self-care (01) ==
LOC: 3 SO LND 16:06
PROVIDERS: ADMIT Specialist; ATTEND Specialist
DX: O62.9 Abnormality of forces of labor, unspecified (principal); O26.892 Other specified pregnancy related conditions, second trimester; R10.2 Pelvic and perineal pain; Z3A.25 25 weeks gestation of pregnancy
CPT/HCPCS: G0378; G0379

== ENCOUNTER 2017-02-27 11:25 | Observation (INO) | payer OTHER ==
[~2017-02-27] VITALS: Ht 175.3 cm; Wt 108.4 kg
== END 2017-02-27 13:10 | disposition home or self-care (01) ==
LOC: 3 SO LND 11:25
PROVIDERS: ADMIT Specialist; ATTEND Specialist
DX: O21.2 Late vomiting of pregnancy (principal); O26.892 Other specified pregnancy related conditions, second trimester; R10.2 Pelvic and perineal pain; Z3A.26 26 weeks gestation of pregnancy
CPT/HCPCS: G0378; G0379

== ENCOUNTER 2017-03-16 18:38 | Observation (INO) | payer OTHER ==
[2017-03-16 19:59] LABS: BILIRUBIN,URINE NEGATIVE (NEG); GLUCOSE,URINE NEGATIVE (NEG); NITRITE,URINE NEGATIVE (NEG); PROTEIN,URINE NEGATIVE (NEG-TRACE); UROBILINOGEN,URINE 0.2 mg/dL (0.2 mg/dL)
[2017-03-16 20:05] LABS: BARBITURATES NEG (NEG); BENZODIAZEPINES NEG (NEG); CANNABINOIDS NEG (NEG); COCAINE NEG (NEG); METHADONE NEG (NEG); OPIATES NEG (NEG); PHENCYCLIDINE NEG (NEG)
[2017-03-16 20:15] LABS: NEG OBC AMNIO NEG; POS OBC AMNIO POS
[2017-03-16 20:23] LABS: BACTERIA,URINE MODERATE /HPF (0-FEW); RBC,URINE 0 /HPF (0-2); SQUAMOUS EPITHELIAL CELL,UR MOD /LPF
== END 2017-03-16 21:11 | disposition home or self-care (01) ==
LOC: 3 SO LND 18:38
PROVIDERS: ADMIT Specialist; ATTEND Specialist
DX: O42.913 Preterm premature rupture of membranes, unspecified as to length of time between rupture and onset of labor, third trimester (principal); O26.893 Other specified pregnancy related conditions, third trimester; R10.30 Lower abdominal pain, unspecified; R30.0 Dysuria; R35.0 Frequency of micturition; Z3A.28 28 weeks gestation of pregnancy
CPT/HCPCS: 36415; 81001; 84112; 87086; G0378; G0379; G0481

== ENCOUNTER 2017-03-26 11:20 | Observation (INO) | payer OTHER ==
[~2017-03-26 11:20] MED LIST changes: -METR500T4 PO; +METR500T8 PO; -ONDA-35 PO; +ONDA4TAB11 PO; -TRAM-29 PO; +TRAM-48 PO
[2017-03-26] MEDS ORDERED: IV RINGERS,LACTATED 1000ML 1,000 ML IV SCH ×2 (11:26)
[2017-03-26] MEDS ORDERED: ONDANSETRON PF 4 MG/2 ML VIAL. IV PRN (11:30)
[2017-03-26 12:10] LABS: BASO % 0 % (0-3); EOS % 1 % (0-3); HEMATOCRIT 37.2 % (36.0-47.0); HEMOGLOBIN 12.3 g/dL (12.0-15.5); LYMPH # 3.1 x10^3/uL (1.0-4.8); LYMPH % 22 % (24-48); MEAN CORPUSCULAR HEMOGLOBIN 28 pg (25-35); MEAN CORPUSCULAR HGB CONC 33 g/dL (31-37); MEAN CORPUSCULAR VOLUME 86 fL (79-100); MONO % 5 % (0-9); NEUT % 73 % (31-73); PLATELET COUNT 228 x10^3/uL (140-400); RED BLOOD COUNT 4.34 x10^6/uL (3.50-5.40); RED CELL DISTRIBUTION WIDTH 13.6 % (11.5-14.5); WHITE BLOOD COUNT 14.7 x10^3/uL (4.0-11.0)
[2017-03-26 12:15] LABS: ALBUMIN 2.8 g/dL (3.4-5.0); ALBUMIN/GLOBULIN RATIO 0.7 (1.0-1.7); CALCIUM 8.4 mg/dL (8.5-10.1); CREATININE 0.4 mg/dL (0.6-1.0); GFR 241.5; POTASSIUM 3.3 mmol/L (3.5-5.1); TOTAL BILIRUBIN 0.3 mg/dL (0.2-1.0); TOTAL PROTEIN 6.8 g/dL (6.4-8.2)
[2017-03-26 14:38] LABS: BILIRUBIN,URINE NEGATIVE (NEG); GLUCOSE,URINE NEGATIVE (NEG); NITRITE,URINE NEGATIVE (NEG); PH,URINE 6.5; PROTEIN,URINE NEGATIVE (NEG-TRACE)
[2017-03-26] MEDS ORDERED: IV DEXTROSE 5%-LACT RINGERS 1,000 ML IV ONE (17:15)
== END 2017-03-26 21:11 | disposition home or self-care (01) ==
LOC: 3 SO LND 11:20
PROVIDERS: ADMIT Specialist; ATTEND Specialist
DX: O21.2 Late vomiting of pregnancy (principal); O26.893 Other specified pregnancy related conditions, third trimester; R42 Dizziness and giddiness; Z3A.30 30 weeks gestation of pregnancy
CPT/HCPCS: 36415; 80053; 81003; 85027; 96361; 96365; 96375; G0378; G0379; J2405; J3230; J7120

== ENCOUNTER 2017-04-14 10:37 | Emergency (ER) | payer OTHER ==
[~2017-04-14] VITALS: Ht 175.3 cm; Wt 108.4 kg
[2017-04-14 10:50] VITALS: BP 129/60
--- NOTE | 2017-04-14 11:55 | PHYS DOC ---
Past Medical History Past Medical History: No Pertinent History Past Surgical History: No Surgical History Alcohol Use: None Drug Use: None Adult General Chief Complaint Chief Complaint: FOOT INJURY PAIN [facility] HPI Patient is a 21 year old female presents emergency department stating that she has having right foot pain and discomfort. Patient is a 36 weeks states that she's been having the pain for approximately the last week. She states that she has pain whenever she is sitting, or whenever she is getting up to walk. Patient presents to emergency department in flip-flops. Patient states that she has been wearing supportive shoes such as tendon issues with little comfort. She has not taken anything at home for pain and discomfort. She denies any numbness or tingling into the foot. Patient denies any trauma or injury to her foot. Review of Systems Review of Systems Constitutional: Denies fever or chills [] Eyes: Denies change in visual acuity, redness, or eye pain [] HENT: Denies nasal congestion or sore throat [] Respiratory: Denies cough or shortness of breath [] Cardiovascular: No additional information not addressed in HPI [] GI: Denies abdominal pain, nausea, vomiting, bloody stools or diarrhea [] : Denies dysuria or hematuria [] Musculoskeletal: Denies back pain. Right foot pain and discomfort Integument: Denies rash or skin lesions [] Neurologic: Denies headache, focal weakness or sensory changes [] Endocrine: Denies polyuria or polydipsia [] Allergies Allergies Allergies Coded Allergies Type Severity Reaction Last Updated Verified peanut Allergy Intermediate itching 10/16/16 Yes Physical Exam Physical Exam Constitutional: Well developed, well nourished, no acute distress, non-toxic appearance. [] HENT: Normocephalic, atraumatic, bilateral external ears normal, oropharynx moist, no oral exudates, nose normal. [] Eyes: PERRLA, EOMI, conjunctiva normal, no discharge. [] Neck: Normal range of motion, no tenderness, supple, no stridor. [] Cardiovascular:Heart rate regular rhythm, no murmur [] Lungs & Thorax: Bilateral breath sounds clear to auscultation [] Skin: Warm, dry, no erythema, no rash. [] Back: No tenderness Extremities: Right foot tenderness noted at the plantar fasciitis, no cyanosis, no clubbing, ROM intact, no edema. Peripheral pulses 2+, get refill brisk less than 2 seconds. Patient with good sensation noted. Neurologic: Alert and oriented X 3, normal motor function, normal sensory function, no focal deficits noted. [] Psychologic: Affect normal, judgement normal, mood normal. [] Current Patient Data Vital Signs Vital Signs Date Time Temp Pulse Resp B/P (MAP) Pulse Ox O2 Delivery O2 Flow Rate FiO2 04/14/17 10:50 98.6 84 20 98 Room Air 98.6 EKG EKG [] Radiology/Procedures Radiology/Procedures [] Course & Med Decision Making Course & Med Decision Making Pertinent Labs and Imaging studies reviewed. (See chart for details) Patient was instructed to use ice packs on on 20 minutes off several times a day. She did wear good supportive shoes such as tennis shoes with good arch support. She was recommended Tylenol for pain and discomfort. Patient was also recommended to use a tennis ball in the morning to roll on the bottom of her foot before she gets up. Patient was also instructed to follow-up with a election judge for further pain and discomfort. Patient will be discharged home in stable condition signs symptoms to return back to emergency prior has been provided. [] Dragon Disclaimer Dragon Disclaimer This electronic medical record was generated, in whole or in part, using a voice recognition dictation system. Departure Departure Impression: Primary Impression: Plantar fasciitis of right foot Disposition: 01 HOME, SELF-CARE Condition: STABLE Referrals: NO PCP (PCP) Patient Instructions: Plantar Fasciitis Additional Instructions: Activity as tolerated Ice packs on 20 minutes off 20 minutes several times a day. Tylenol for pain or discomfort. Wear good arch support shoes. Use a tennis ball to roll on the bottom of your foot prior to getting up or walking. Follow-up with a election judge in the next week. Return back to emergency prior signs symptoms become worse. JAJA NEFF APRN Apr 14, 2017 11:55
== END 2017-04-14 12:06 | disposition home or self-care (01) ==
LOC: ER 10:37
DX: O26.893 Other specified pregnancy related conditions, third trimester (principal); Z3A.36 36 weeks gestation of pregnancy; M72.2 Plantar fascial fibromatosis; Z91.010 Allergy to peanuts
CPT/HCPCS: 99281

== ENCOUNTER 2017-04-25 11:15 | Observation (INO) | payer OTHER ==
[2017-04-25] MEDS ORDERED: IV RINGERS,LACTATED 1000ML 1,000 ML IV SCH (15:06)
== END 2017-04-25 14:05 | disposition home or self-care (01) ==
LOC: 3 SO LND 11:15
PROVIDERS: ADMIT Specialist; ATTEND Specialist
DX: O62.9 Abnormality of forces of labor, unspecified (principal); Z3A.34 34 weeks gestation of pregnancy
CPT/HCPCS: G0378; G0379

== ENCOUNTER 2017-04-30 13:40 | Observation (INO) | payer OTHER ==
[2017-04-30] MEDS ORDERED: IV RINGERS,LACTATED 1000ML 1,000 ML IV SCH (14:18)
[2017-04-30] MEDS ORDERED: hydrOXYzine PAMOATE 25 MG CAPSULE PO ONE (14:30)
--- NOTE | 2017-04-30 15:45 | EKG ---
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
--- NOTE | 2017-04-30 15:57 | RAD ---
Indication chest pain. Shortness of breath. A single view of the chest was obtained and is compared to an examination 06/23/2016. The heart and pulmonary vessels appear normal. The lungs are clear of acute infiltrates. There has not been a significant change when compared to the previous exam. IMPRESSION: No acute or focal process. No significant change
== END 2017-04-30 19:10 | disposition home or self-care (01) ==
LOC: 3 SO LND 13:40
PROVIDERS: ADMIT Specialist; ATTEND Specialist
DX: O21.2 Late vomiting of pregnancy (principal); O26.893 Other specified pregnancy related conditions, third trimester; R10.9 Unspecified abdominal pain; R07.89 Other chest pain; Z3A.35 35 weeks gestation of pregnancy
CPT/HCPCS: 71010; 93005; G0378; G0379; Q0177

== ENCOUNTER 2017-05-06 17:10 | Observation (INO) | payer OTHER ==
--- NOTE | 2017-05-06 18:27 | RAD ---
EXAM: Obstetric sonogram. HISTORY: IUGR. TECHNIQUE: Sonographic imaging of a gravid uterus was performed. COMPARISON: 01/12/2017. FINDINGS: There is a single intrauterine fetus with a heart rate of 132 bpm. There is a posterior placenta without evidence of placental previa. The amniotic fluid index is grossly normal. The biparietal diameter is 8.6 cm, corresponding with 34 weeks and 5 days. The head circumference is 32.01 cm, corresponding with 36 weeks and 1 day. The abdominal circumference is 29.74 cm, corresponding with 33 weeks and 5 days. The femoral length is 8.06 cm, corresponding with 41 weeks and 2 days. The cephalic index is normal at 81.8. The head circumference to abdominal circumference ratio is normal at 1.08. The estimated weight is 2875 g and the estimated gestational age based on combined ultrasound measurements is 36 weeks and 3 days. The estimated weight is at the 59th percentile for LMP. IMPRESSION: 1. Single intrauterine fetus with estimated gestational age based on ultrasound measurements of 36 weeks and 3 days. The estimated weight is at the 59th percentile for LMP. 2. Note is made that the femoral length is 5-7 weeks greater than expected compared to the additional measurements. This is most likely over estimated due to measurement technique. Short-term follow-up can be performed for repeat measurement if there is clinical concern. Electronically signed by: Crsytal Sosa MD (05/06/2017 6:24 PM) [facility]
[2017-05-06] MEDS ORDERED: BETAMET ACET&NA PHOS 30 MG/5 ML VIAL. IM SCH (19:30)
== END 2017-05-06 19:30 | disposition home or self-care (01) ==
LOC: 3 SO LND 17:10
PROVIDERS: ADMIT Specialist; ATTEND Specialist
DX: O36.5930 Maternal care for other known or suspected poor fetal growth, third trimester, not applicable or unspecified (principal); Z3A.35 35 weeks gestation of pregnancy
CPT/HCPCS: 76815; 96372; G0378; G0379; J0702; 59025

== ENCOUNTER 2017-05-07 19:04 | Observation (INO) | payer OTHER ==
[2017-05-07] MEDS ORDERED: BETAMET ACET&NA PHOS 30 MG/5 ML VIAL. IM ONE (19:15)
[2017-05-15] MEDS ORDERED: NAPR500T PO (09:35)
[2017-05-15] MEDS ORDERED: DOCU-109 PO (09:35)
== END 2017-05-07 20:12 | disposition home or self-care (01) ==
LOC: 3 SO LND 19:04
PROVIDERS: ADMIT Specialist; ATTEND Specialist
DX: Z34.93 Encounter for supervision of normal pregnancy, unspecified, third trimester (principal); Z3A.35 35 weeks gestation of pregnancy
CPT/HCPCS: 96372; G0378; G0379; J0702

== ENCOUNTER 2017-07-29 13:48 | Emergency (ER) | payer OTHER ==
[~2017-07-29] VITALS: Ht 175.3 cm; Wt 97.5 kg
[~2017-07-29 13:48] MED LIST changes: +DOCU-109 PO
[2017-07-29] MEDS ORDERED: IV NORMAL SALINE 1000ML BAG 1,000 ML IV SCH (15:13)
[2017-07-29] MEDS ORDERED: ASPIRIN CHEWABLE 81 MG TABLET. PO ONE (15:15)
[2017-07-29] MEDS ORDERED: ONDANSETRON PF 4 MG/2 ML VIAL. IV ONE (15:15)
[2017-07-29] MEDS ORDERED: 0.9 % SODIUM CHLORIDE 10 ML DISP.SYRIN. IV PRN (15:15)
[2017-07-29] MEDS ORDERED: HYDROmorphone 2 MG/ML VIAL IV/SQ PRN (15:15)
--- NOTE | 2017-07-29 15:23 | PHYS DOC ---
Past Medical History Past Medical History: No Pertinent History Past Surgical History: No Surgical History Alcohol Use: None Drug Use: None Adult General Chief Complaint Chief Complaint: NAUSEA/VOMITING/DIARRHA HPI HPI Is a pleasant 21-year-old female she is a 004 who is Mr. last menstrual period which as was supposed to begin 2 weeks ago. Patient presents today with 2 week history of nausea and vomiting mostly in the mornings nonbilious nonbloody with sick contact home with similar symptoms. She also recalls intermittent chest pain in between her breasts this is described as sharp and stabbing lasting 3-5 minutes in duration without radiation to her neck back or abdomen. She describes no shortness of breath, no cough no fevers no chills no night sweats or weight loss. Patient is primarily concerned she is and would like to be checked. She's never had chest tightness like this in the past. Patient denies any other PE risk factors. Patient denies any trauma or travel. Patient's pain is still present at this time without radiation to the neck shoulder or arm. It is not exacerbated by position or exertion. It is not reproducible when she pushes on her chest. Differential diagnosis for chest pain: Pericarditis, myocarditis, endocarditis, pneumothorax, pneumonia, aortic dissection, esophageal spasm, esophagitis, peptic ulcer disease, acute coronary syndrome, mediastinitis, Boerhaave syndrome , musculoskeletal chest wall pain, costochondritis, intercostal strain, rib fracture, pulmonary contusion, pneumonitis, pleural effusion, pericardial effusion, pericardial tamponode, and pleurisy. Review of Systems Review of Systems Constitutional: Denies fever or chills [] Eyes: Denies change in visual acuity, redness, or eye pain [] HENT: Denies nasal congestion or sore throat [] Respiratory: Denies cough or shortness of breath [] Cardiovascular: No additional information not addressed in HPI [] GI: He does not complain of abdominal pain just nausea and vomiting without bloody stools or diarrhea. : Denies dysuria or hematuria [] Musculoskeletal: Denies back pain or joint pain [] Integument: Denies rash or skin lesions [] Neurologic: Denies headache, focal weakness or sensory changes [] Endocrine: Denies polyuria or polydipsia [] Current Medications Current Medications Current Medications Medications (Trade) Dose Ordered Sig/Christi Start Time Stop Time Status Last Admin Dose Admin Aspirin (Children'S Aspirin) 324 mg 1X ONCE 07/29/17 15:15 07/29/17 15:21 DC 07/29/17 16:01 324 MG Hydromorphone HCl (Dilaudid) 0.5 mg PRN Q15MIN PRN 07/29/17 15:15 07/30/17 15:14 Ondansetron HCl (Zofran) 4 mg 1X ONCE 07/29/17 15:15 07/29/17 15:21 DC 07/29/17 16:00 4 MG Sodium Chloride (Normal Saline Flush) 10 ml QSHIFT PRN 07/29/17 15:15 Allergies Allergies Allergies Coded Allergies Type Severity Reaction Last Updated Verified peanut Allergy Intermediate itching 10/16/16 Yes Physical Exam Physical Exam Constitutional: Well developed, well nourished, no acute distress, non-toxic appearance. [] HENT: Normocephalic, atraumatic, bilateral external ears normal, oropharynx moist, no oral exudates, nose normal. [] Eyes: PERRLA, EOMI, conjunctiva normal, no discharge. [] Neck: Normal range of motion, no tenderness, supple, no stridor. [] Cardiovascular:Heart rate regular rhythm, no murmur [] Lungs & Thorax: Bilateral breath sounds clear to auscultation she does have slight chest wall tender to palpation over the sternum no evidence of external scruggs of trauma. Abdomen: Bowel sounds normal, soft, no tenderness, no masses, no pulsatile masses. [] Skin: Warm, dry, no erythema, no rash. [] Back: No tenderness, no CVA tenderness. [] Extremities: No tenderness, no cyanosis, no clubbing, ROM intact, no edema. [] Neurologic: Alert and oriented X 3, normal motor function, normal sensory function, no focal deficits noted. [] Psychologic: Affect normal, judgement normal, mood normal. [] Current Patient Data Lab Values Laboratory Tests Test 07/29/17 15:30 07/29/17 15:34 White Blood Count 9.4 x10^3/uL (4.0-11.0) Red Blood Count 4.92 x10^6/uL (3.50-5.40) Hemoglobin 13.8 g/dL (12.0-15.5) Hematocrit 41.6 % (36.0-47.0) Mean Corpuscular Volume 85 fL (79-100) Mean Corpuscular Hemoglobin 28 pg (25-35) Mean Corpuscular Hemoglobin Concent 33 g/dL (31-37) Red Cell Distribution Width 14.1 % (11.5-14.5) Platelet Count 273 x10^3/uL (140-400) Neutrophils (%) (Auto) 59 % (31-73) Lymphocytes (%) (Auto) 35 % (24-48) Monocytes (%) (Auto) 4 % (0-9) Eosinophils (%) (Auto) 1 % (0-3) Basophils (%) (Auto) 0 % (0-3) Neutrophils # (Auto) 5.6 x10^3uL (1.8-7.7) Lymphocytes # (Auto) 3.3 x10^3/uL (1.0-4.8) Monocytes # (Auto) 0.4 x10^3/uL (0.0-1.1) Eosinophils # (Auto) 0.1 x10^3/uL (0.0-0.7) Basophils # (Auto) 0.0 x10^3/uL (0.0-0.2) D-Dimer (Radha) < 0.27 ug/mlFEU Sodium Level 140 mmol/L (136-145) Potassium Level 3.7 mmol/L (3.5-5.1) Chloride Level 104 mmol/L (98-107) Carbon Dioxide Level 28 mmol/L (21-32) Anion Gap 8 (6-14) Blood Urea Nitrogen 6 mg/dL (7-20) L Creatinine 0.6 mg/dL (0.6-1.0) Estimated GFR (Cockcroft-Gault) 151.3 BUN/Creatinine Ratio 10 (6-20) Glucose Level 90 mg/dL (70-99) Calcium Level 9.1 mg/dL (8.5-10.1) Magnesium Level 1.7 mg/dL (1.8-2.4) L Total Bilirubin 0.3 mg/dL (0.2-1.0) Aspartate Amino Transferase (AST) 18 U/L (15-37) Alanine Aminotransferase (ALT) 15 U/L (14-59) Alkaline Phosphatase 76 U/L (46-116) Creatine Kinase 128 U/L (26-192) Creatine Kinase MB (Mass) < 0.5 ng/mL (0.0-3.6) Creatine Kinase MB Relative Index 0.4 % (0-4) [id number]-[id number]-Type Natriuretic Peptide 43 pg/mL (0-124) Total Protein 7.5 g/dL (6.4-8.2) Albumin 3.9 g/dL (3.4-5.0) Albumin/Globulin Ratio 1.1 (1.0-1.7) Lipase 146 U/L (73-393) Serum Test, Qualitative Negative (NEG) POC Urine HCG, Qualitative Hcg negative (Negative) Laboratory Tests 07/29/17 15:30 Laboratory Tests 07/29/17 15:30 EKG EKG []EKG time 3:22 PM and by me Dr. Rojas 07/29/2017 demonstrates normal sinus rhythm a P wave there were QRS T-wave with this [address] intervals 146 which is normal QRS width is 96 which is normal QTC was 456 which is normal this is a normal EKG no ST segment T-wave changes consistent with acute ischemia. Radiology/Procedures Radiology/Procedures []And lateral chest x-ray read by me demonstrates no acute focal infiltrate, no pleural effusion, no megaly, no pneumothorax, no pneumomediastinum, mild tonsillar granulomas at the mediastinal areas Course & Med Decision Making Course & Med Decision Making Pertinent Labs and Imaging studies reviewed. (See chart for details) she presents with chest discomfort and nausea and vomiting suspect that she might be . Differential diagnosis for chest pain: Pericarditis, myocarditis, endocarditis, pneumothorax, pneumonia, aortic dissection, esophageal spasm, esophagitis, peptic ulcer disease, acute coronary syndrome, mediastinitis, Boerhaave syndrome , musculoskeletal chest wall pain, costochondritis, intercostal strain, rib fracture, pulmonary contusion, pneumonitis, pleural effusion, pericardial effusion, pericardial tamponode, and pleurisy. My abdominal pain differential includes but not limited to ectopic , UTI, pyonephritis, cholecystitis , cholelithiasis, pancreatitis, appendicitis, small bowel obstruction, large bowel obstruction, diverticulosis, Diverticulum, intussusception, volvulus, irritable bowel disease, Crohn's or ulcerative colitis, considered upon arrival Time is now 4:30 PM patient feels markedly improved with fluids antiemetics. Chest pain is also dissipated as well given patient's duration of chest pain her troponin is negative, d-dimer is negative, chest x-ray is normal, EKG is unremarkable, patient denied discussed risk factors for chest pain Based on her heart score which is 0 patient is low risk and be discharged to follow-up with her primary care doctor referred her cost controller. Shows no signs of dehydration. I will ask her to follow-up with her primary care doctor and return for any focal areas of pain in the right lower quadrant or she has any question concerns. Highly suspicious 2 points moderately suspicious 1. slightly suspicious 0 point EKG: ST segment depression 2. nonspecific repolarization disturbance 1. normal 0 point Age: Greater than 65 2 points, 65-45 1., less than 45 years old 0 points Risk factors:> 3 risk factors 2 points, 1-2 risk factors one point, no risk factors 0 point Troponin: > 2 times normal 2 points, 1-2 times normal 1., normal limits 0 point Total score: Score % pts MACE/n MACE Policy 0-3 32% 1.9% 0.05% Discharge 4-6 51% 413/3136 13% 1.3% Observation Risk management 7-10 17% 518/1045 50% 2.8% Observation Treatment, CAG []Impression: Nausea vomiting and viral nature as the etiology. Chest pain likely pleuritic in nature with no evidence of acute coronary event at this time. No evidence of PE, pneumonia or peptic ulcer disease. Dragon Disclaimer Dragon Disclaimer This electronic medical record was generated, in whole or in part, using a voice recognition dictation system. Departure Departure Impression: Primary Impression: Nausea and vomiting Additional Impression: Chest pain Disposition: HOME, SELF-CARE Condition: IMPROVED Referrals: NO PCP (PCP) Patient Instructions: Chest Pain (Nonspecific), Nausea and Vomiting Additional Instructions: My discharge plan Although you have low risk chest pain you May still have heart disease despite having an apparent negative workup today. I would advise that you follow-up with your primary care doctor this week to arrange follow-up with her cost controller. The cost controller will help stratify your risk for heart injury in the future. Follow up: In addition patient is asked to followup with their primary doctor, within a week for followup examination and to address patient's ongoing medical conditions. Because patient does not have a regular medical doctor, the [facility] Resource Sheet will be provided to establish care primary care. Patient is advised that in the Emergency Department primary complaints are addressed and only in light of known signs and symptoms. Patient should return immediately to the emergency department if new signs and symptoms develop or patient's condition worsens in any way. At time of discharge patient was in stable condition and had verbalized understanding of the discharge instructions. Although there is no obvious evidence of appendicitis or intra-abdominal catastrophe at this time requiring surgical intervention or immediate medical management you could still develop these issues in the future. I would ask that you return immediately for any increasing symptoms question concerns. Scripts Hydrocodone Bit/Acetaminophen (HYDROCODONE-APAP 5-325 ) 1 Each Tablet 1-2 TAB PO PRN Q6HRS Y for PAIN for 5 Days, #10 TAB 0 Refills Prov: TAQUERIA ROJAS MD 07/29/17 Ondansetron (ZOFRAN ODT) 4 Mg Tab.rapdis 4 MG PO BID Y for NAUSEA/VOMITING for 5 Days, #10 TAB Prov: TAQUERIA ROJAS MD 07/29/17 Dicyclomine Hcl (BENTYL) 10 Mg Capsule 1 CAP PO TID, #30 CAP 3 Refills Prov: TAQUERIA ROJAS MD 07/29/17 Problem Qualifiers TAQUERIA ROJAS MD Jul 29, 2017 15:23
--- NOTE | 2017-07-29 15:28 | EKG ---
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
[2017-07-29 15:39] LABS: BASO % 0 % (0-3); EOS % 1 % (0-3); HEMATOCRIT 41.6 % (36.0-47.0); HEMOGLOBIN 13.8 g/dL (12.0-15.5); LYMPH # 3.3 x10^3/uL (1.0-4.8); LYMPH % 35 % (24-48); MEAN CORPUSCULAR HEMOGLOBIN 28 pg (25-35); MEAN CORPUSCULAR HGB CONC 33 g/dL (31-37); MEAN CORPUSCULAR VOLUME 85 fL (79-100); MONO % 4 % (0-9); NEUT % 59 % (31-73); PLATELET COUNT 273 x10^3/uL (140-400); RED BLOOD COUNT 4.92 x10^6/uL (3.50-5.40); RED CELL DISTRIBUTION WIDTH 14.1 % (11.5-14.5); WHITE BLOOD COUNT 9.4 x10^3/uL (4.0-11.0)
[2017-07-29 15:53] LABS: CALCIUM 9.1 mg/dL (8.5-10.1); CREATININE 0.6 mg/dL (0.6-1.0); GFR 151.3; NEG OBC SER NEG; POS OBC SER POS; POTASSIUM 3.7 mmol/L (3.5-5.1)
[2017-07-29 15:59] LABS: ALBUMIN 3.9 g/dL (3.4-5.0); ALBUMIN/GLOBULIN RATIO 1.1 (1.0-1.7); MAGNESIUM 1.7 mg/dL (1.8-2.4); TOTAL BILIRUBIN 0.3 mg/dL (0.2-1.0); TOTAL PROTEIN 7.5 g/dL (6.4-8.2)
[2017-07-29 16:11] LABS: CREATINE KINASE 128 U/L (26-192)
[2017-07-29 16:12] LABS: BILIRUBIN,URINE NEGATIVE (NEG); GLUCOSE,URINE NEGATIVE (NEG); NITRITE,URINE NEGATIVE (NEG); PROTEIN,URINE NEGATIVE (NEG-TRACE)
[2017-07-29 16:12] LABS: CKMB MASS < 0.5 ng/mL (0.0-3.6)
[2017-07-29 16:28] LABS: BACTERIA,URINE MODERATE /HPF (0-FEW); RBC,URINE 0 /HPF (0-2); SQUAMOUS EPITHELIAL CELL,UR MOD /LPF
[2017-07-29] MEDS ORDERED: ONDA4TAB10 PO (16:35)
[2017-07-29] MEDS ORDERED: HYDR-2758 PO (16:35)
[2017-07-29] MEDS ORDERED: DICY10CA53 PO (16:35)
--- NOTE | 2017-07-29 16:44 | RAD ---
Indication chest pain. A single view of the chest was obtained and is compared to a study 04/30/2017. The heart, pulmonary vessels and mediastinum appear normal. The lungs are clear. There is no pleural fluid or pneumothorax. The visualized bony structures appear grossly intact. A significant change compared to the prior study is not seen. IMPRESSION: No acute or focal process. No significant change
[2017-07-29 17:03] VITALS: BP 116/57
== END 2017-07-29 17:04 | disposition home or self-care (01) ==
LOC: ER 13:48
DX: R11.2 Nausea with vomiting, unspecified (principal); R07.89 Other chest pain; Z91.010 Allergy to peanuts
CPT/HCPCS: 36415; 71010; 80053; 81001; 81025; 82553; 83690; 83735; 83880; 84703; 85025; 85379; 86900; 86901; 87086; 93005; 96361; 96374; 99285; J2405; J7030

== ENCOUNTER 2018-01-29 14:12 | Observation (INO) | payer OTHER | END 2018-01-29 15:45 | disposition home or self-care (01) | LOC: 3 SO LND 14:12 | DX: O26.892 Other specified pregnancy related conditions, second trimester (principal); R10.9 Unspecified abdominal pain; R31.9 Hematuria, unspecified; N93.9 Abnormal uterine and vaginal bleeding, unspecified; Z3A.25 25 weeks gestation of pregnancy | CPT/HCPCS: G0378; G0379 ==

== ENCOUNTER 2018-03-13 14:10 | Observation (INO) | payer OTHER ==
[2018-03-13] MEDS: hydrOXYzine PAMOATE 25 MG CAPSULE PO (16:17)
== END 2018-03-13 16:28 | disposition home or self-care (01) ==
LOC: 3 SO LND 14:10
DX: O62.9 Abnormality of forces of labor, unspecified (principal); Z3A.31 31 weeks gestation of pregnancy
CPT/HCPCS: G0378; G0379; Q0177

== ENCOUNTER 2018-03-16 13:02 | Observation (INO) | payer OTHER ==
[2018-03-16 13:52] LABS: BILIRUBIN,URINE NEGATIVE (NEG); CLARITY,URINE CLEAR; COLOR,URINE YELLOW; GLUCOSE,URINE NEGATIVE (NEG); NITRITE,URINE NEGATIVE (NEG); PH,URINE 6.5; PROTEIN,URINE NEGATIVE (NEG-TRACE)
[2018-03-16] MEDS: hydrOXYzine PAMOATE 25 MG CAPSULE PO (14:55)
[2018-03-16] MEDS: IV RINGERS,LACTATED 1000ML 1,000 ML IV (14:55)
== END 2018-03-16 18:34 | disposition home or self-care (01) ==
LOC: 3 SO LND 13:02
DX: O26.853 Spotting complicating pregnancy, third trimester (principal); Z3A.31 31 weeks gestation of pregnancy
CPT/HCPCS: 81003; 96360; 96361; G0378; G0379; J7120; Q0177

== ENCOUNTER 2018-05-09 06:12 | Inpatient (IN) | payer OTHER ==
[2018-05-09] MEDS ORDERED: LIDOCAINE 1% PF 30 ML VIAL. INJ (07:00)
[2018-05-09] MEDS ORDERED: BUTORPHANOL 2 MG/ML VIAL. IV (07:00)
[2018-05-09] MEDS ORDERED: fentaNYL PF VIAL 100 MCG/2 ML VIAL IV (07:00)
[2018-05-09] MEDS ORDERED: TERBUTALINE 1 MG/ML VIAL. SQ (07:00)
[2018-05-09] MEDS ORDERED: OXYTOCIN 30 UNIT/500 ML PREMIX 500 ML IV (07:00)
[2018-05-09] MEDS ORDERED: 0.9 % SODIUM CHLORIDE 10 ML DISP.SYRIN. IV (07:00)
[2018-05-09 08:10] LABS: ADD MAN DIFF? NO
[2018-05-09 08:11] LABS: BASO % 0 % (0-3); EOS # 0.2 x10^3/uL (0.0-0.7); EOS % 1 % (0-3); HEMATOCRIT 38.2 % (36.0-47.0); HEMOGLOBIN 13.3 g/dL (12.0-15.5); LYMPH % 22 % (24-48); MEAN CORPUSCULAR HEMOGLOBIN 29 pg (25-35); MEAN CORPUSCULAR HGB CONC 35 g/dL (31-37); MEAN CORPUSCULAR VOLUME 85 fL (79-100); MONO # 0.8 x10^3/uL (0.0-1.1); MONO % 6 % (0-9); NEUT # 9.4 x10^3uL (1.8-7.7); NEUT % 70 % (31-73); PLATELET COUNT 237 x10^3/uL (140-400); RED BLOOD COUNT 4.51 x10^6/uL (3.50-5.40); RED CELL DISTRIBUTION WIDTH 13.7 % (11.5-14.5); WHITE BLOOD COUNT 13.4 x10^3/uL (4.0-11.0)
[2018-05-09] MEDS: CITRIC ACID/SODIUM CITRATE 30 ML SOLUTION. PO (08:34)
[2018-05-09] MEDS: IV RINGERS,LACTATED 1000ML 1,000 ML IV ×4 (08:35→22:59)
[2018-05-09] MEDS: AMPICILLIN SODIUM 2 GM in IV NORMAL SALINE 100ML 100 ML IV (08:37)
[2018-05-09] MEDS: OXYTOCIN 30 UNIT/500 ML PREMIX 500 ML IV (08:37)
[2018-05-09] MEDS ORDERED: ROPIVacaine 0.2% IN 0.9%NACL PF 40 MG/20 ML DISP.SYRIN. ×2 (09:06→09:30)
[2018-05-09] MEDS ORDERED: L&D EPIDURAL SYRINGE 50 ML EP (09:07)
[2018-05-09] MEDS ORDERED: NALOXONE 0.4 MG/ML VIAL. IV (09:15)
[2018-05-09] MEDS ORDERED: L&D EPIDURAL 50 ML SYRINGE. EP (09:30)
[2018-05-09] MEDS: ONDANSETRON PF 4 MG/2 ML VIAL. IV (11:19)
[2018-05-09] MEDS: L&D EPIDURAL SYRINGE 50 ML EP (11:55)
[2018-05-09] MEDS ORDERED: BUPIVACAINE MPF 0.25% 30 ML VIAL. (13:03)
[2018-05-09] MEDS ORDERED: OXYTOCIN 10 UNIT/ML VIAL. (13:59)
[2018-05-09] MEDS: OXYTOCIN 10 UNIT/ML VIAL. IM (14:15)
[2018-05-09] MEDS: IBUPROFEN 800 MG TABLET. PO ×2 (16:11→23:15)
[2018-05-09] MEDS ORDERED: ACETAMINOPHEN 325 MG TABLET. PO (17:15)
[2018-05-09] MEDS: FERROUS SULFATE 325 MG TABLET. PO (17:30)
[2018-05-09] MEDS: HYDROcodone/APAP 5/325MG 1 TAB TABLET PO ×2 (18:51→23:15)
[2018-05-10 05:45] LABS: HEMATOCRIT 38.5 % (36.0-47.0); HEMOGLOBIN 12.8 g/dL (12.0-15.5); MEAN CORPUSCULAR HEMOGLOBIN 28 pg (25-35); MEAN CORPUSCULAR HGB CONC 33 g/dL (31-37); MEAN CORPUSCULAR VOLUME 85 fL (79-100); PLATELET COUNT 219 x10^3/uL (140-400); RED BLOOD COUNT 4.53 x10^6/uL (3.50-5.40); RED CELL DISTRIBUTION WIDTH 13.9 % (11.5-14.5)
[2018-05-10] MEDS: IV RINGERS,LACTATED 1000ML 1,000 ML IV (06:59)
[2018-05-10] MEDS: IBUPROFEN 800 MG TABLET. PO ×2 (07:50→17:22)
[2018-05-10] MEDS: HYDROcodone/APAP 5/325MG 1 TAB TABLET PO ×3 (07:50→17:22)
[2018-05-10] MEDS: FERROUS SULFATE 325 MG TABLET. PO ×2 (12:07→16:43)
[2018-05-10] MEDS: DOCUSATE SODIUM 100 MG CAPSULE. PO (15:22)
[2018-05-10] MEDS: CALCIUM CARBONATE 500 MG TAB.CHEW PO (20:50)
[2018-05-10] MEDS: MAGNESIUM HYDROXIDE 2,400 MG/30 ML ORAL.SUSP. PO (20:50)
[2018-05-11] MEDS: HYDROcodone/APAP 5/325MG 1 TAB TABLET PO (01:09)
[2018-05-11] MEDS: IBUPROFEN 800 MG TABLET. PO (01:09)
== END 2018-05-11 12:55 | disposition home or self-care (01) | DRG 775 ==
LOC: 3 SO LND 06:12 → 3 NORTH 16:28
PROVIDERS: Specialist
PROC: 10E0XZZ Delivery of Products of Conception, External Approach (ICD-10-PCS; principal; 2018-05-09)
PROC: 3E0R3BZ Introduction of Anesthetic Agent into Spinal Canal, Percutaneous Approach (ICD-10-PCS; 2018-05-09)
PROC: 00HU33Z Insertion of Infusion Device into Spinal Canal, Percutaneous Approach (ICD-10-PCS; 2018-05-09)
PROC: 3E0P7VZ Introduction of Hormone into Female Reproductive, Via Natural or Artificial Opening (ICD-10-PCS; 2018-05-09)
PROC: 10907ZC Drainage of Amniotic Fluid, Therapeutic from Products of Conception, Via Natural or Artificial Opening (ICD-10-PCS; 2018-05-09)
PROC: 3E033VJ Introduction of Other Hormone into Peripheral Vein, Percutaneous Approach (ICD-10-PCS; 2018-05-09)
DX: O80 Encounter for full-term uncomplicated delivery (principal); Z37.0 Single live birth; Z3A.39 39 weeks gestation of pregnancy; Z91.010 Allergy to peanuts
CPT/HCPCS: 36415; 85025; 85027; 86592; 86850; 86900; 86901; J0290; J2405; J2590; J2795; J7120

== ENCOUNTER 2019-06-29 20:50 | Observation (INO) | payer OTHER ==
[2018-05-11 10:46] VITALS: BP 119/66
[~2019-06-29 20:50] MED LIST changes: +DICY10CA53 PO; +HYDR-2761 PO; +HYDR-3164 PO; -HYDR-971 PO; +METR-34 PO; -METR500T8 PO; +NAPR-514 PO; +NAPR-683 PO; -NAPR500T PO; +OMEP20CA10 PO; -OMEP20CA9 PO; +ONDA4TAB10 PO
== END 2019-06-29 22:20 | disposition home or self-care (01) ==
LOC: 3 SO LND 20:50
PROVIDERS: ADMIT Specialist; ATTEND Specialist
DX: O99.89 Other specified diseases and conditions complicating pregnancy, childbirth and the puerperium (principal); M54.9 Dorsalgia, unspecified; W10.9XXA Fall (on) (from) unspecified stairs and steps, initial encounter; Y93.89 Activity, other specified; Y92.89 Other specified places as the place of occurrence of the external cause; Y99.8 Other external cause status; Z3A.30 30 weeks gestation of pregnancy
CPT/HCPCS: G0378; G0379; 59025

== ENCOUNTER 2019-08-17 12:39 | Observation (INO) | payer OTHER ==
[2018-05-11 10:46] VITALS: BP 119/66
[2019-08-17] MEDS ORDERED: IV RINGERS,LACTATED 1000ML 1,000 ML IV SCH (12:55)
[2019-08-17 13:44] LABS: BILIRUBIN,URINE NEGATIVE (NEG); CLARITY,URINE CLEAR; COLOR,URINE YELLOW; NITRITE,URINE NEGATIVE (NEG); PROTEIN,URINE NEGATIVE (NEG-TRACE)
[2019-08-17 13:51] LABS: AMPHETAMINE/METHAMPHETAMINE NEG (NEG); BARBITURATES NEG (NEG); BENZODIAZEPINES NEG (NEG); CANNABINOIDS NEG (NEG); COCAINE NEG (NEG); METHADONE NEG (NEG); OPIATES NEG (NEG); PHENCYCLIDINE NEG (NEG)
[2019-08-17 14:00] LABS: BACTERIA,URINE FEW /HPF (0-FEW); RBC,URINE 0 /HPF (0-2); SQUAMOUS EPITHELIAL CELL,UR MOD /LPF
--- NOTE | 2019-08-17 15:47 | RAD ---
EXAM: Obstetrics sonogram. HISTORY: Placental position. weight and JAMEEL assessment. TECHNIQUE: Sonographic imaging of a gravid uterus was performed. COMPARISON: None. FINDINGS: There is a single intrauterine fetus in cephalic presentation with a normal heart rate of 155 bpm. The cervix is obscured. There is a low normal JAMEEL of 8.0 cm. There is an anterior placenta without evidence of placenta previa. The biparietal diameter is 9.70 cm, corresponding with 39 weeks and 5 days. The head circumference is 34.04 cm, corresponding with 39 weeks and 1 day. The abdominal circumference is 35.58 cm, corresponding with 39 weeks and 3 days. The femoral length is 7.73 cm, corresponding with 39 weeks and 4 days. The estimated gestational age patient combined ultrasound measurements is 39 weeks and 3 days and the estimated due date is 08/21/2019. The estimated weight is 3802 g. This corresponds with the 93rd percentile for an estimated gestational age of 37 weeks and 2 days based on LMP. IMPRESSION: 1. Single intrauterine fetus in cephalic presentation with a normal heart rate and gestational age based on ultrasound measurements of 39 weeks and 3 days. The estimated weight is at the 93rd percentile for an estimated gestational age of 37 weeks and 2 days based on LMP. 2. Low normal JAMEEL of 8.0 cm. Electronically signed by: Crystal Sosa MD (08/17/2019 3:45 PM) [id number]
== END 2019-08-17 15:41 | disposition home or self-care (01) ==
LOC: 3 SO LND 12:39
PROVIDERS: ADMIT Specialist; ATTEND Specialist
DX: O26.893 Other specified pregnancy related conditions, third trimester (principal); R10.9 Unspecified abdominal pain; Z3A.37 37 weeks gestation of pregnancy
CPT/HCPCS: 76805; 80307; 81001; 87086; G0378; G0379

== ENCOUNTER 2020-07-10 11:14 | Emergency (ER) | payer OTHER ==
[~2020-07-10] VITALS: Ht 175.3 cm; Wt 120.4 kg
[~2020-07-10 11:14] MED LIST changes: -OMEP20CA10 PO; +OMEP20CA16 PO; +ONDA-84 PO; -ONDA4TAB11 PO
[2020-07-10 12:28] LABS: BILIRUBIN,URINE NEGATIVE (NEG); CLARITY,URINE CLEAR; COLOR,URINE YELLOW; NITRITE,URINE NEGATIVE (NEG); PROTEIN,URINE NEGATIVE (NEG-TRACE)
[2020-07-10 12:48] LABS: BACTERIA,URINE FEW /HPF (0-FEW); RBC,URINE 0 /HPF (0-2)
--- NOTE | 2020-07-10 13:25 | RAD ---
Examination: PREG 1ST TRIMESTER History: vag bleeding in preg; ABD /Pelvic pain in / Comparison/Correlation: None Findings: Transabdominal and transvaginal pelvic ultrasound exam was performed. Transvaginal technique was utilized better assess the adnexal structures. Uterus measures 8.7 cm x 6 x 5.2 cm. Myometrium is normal. Intrauterine gestational sac is present. The sac is identified. pole is present with heart rate of 104 bpm. [place]-rump length is 0.41 cm corresponding to 6 weeks 1 day. Ultrasound EDC is 03/04/2021. No subchorionic hemorrhage. Right ovary measures 3 cm x 2.3 cm 2.20. Left ovary measures 2.4 cm x 2 cm x 1.7. No suspicious adnexal mass lesions. No pelvic free fluid. Impression: Single living intrauterine gestation is present with crown-rump corresponding to 6 weeks 1 day gestation which matches the reported clinical age. No suspicious process. Electronically signed by: Milton Carter MD (07/10/2020 1:22 PM) [id number]
--- NOTE | 2020-07-10 13:48 | PHYS DOC ---
Past Medical History Past Medical History: Anxiety, Bipolar, Depression Past Surgical History: No Surgical History Smoking Status: Never Smoker Alcohol Use: None Drug Use: None General Adult EDM: Chief Complaint: ABDOMINAL PAIN IN HPI: HPI: Patient is a 24 year old AA female who presents to the emergency department with complaints of lower abdominal pain during . She states that she was seen at urgent care 2 days ago and was told that she was . Patient reports that she has been having pelvic pain today. She denies any irregular v aginal discharge, vaginal odor, vaginal bleeding, dysuria, hematuria, increased urinary frequency, incontinence, or fever. She states she has had some mild low back pain but denies any numbness, tingling, or weakness of her lower extremities. Patient reports that she is 7, para 6, with no previous history of spontaneous or elective abortions. She currently rates her pain a 3 out of 10 on the pain scale, she denies any radiation of the pain, she denies any alleviating or exacerbating factors. 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 Ruiz but she will now be seeing Dr. Quiroz and she has an appointment on July 12 already set up. Review of Systems: Review of Systems: Constitutional: Denies fever or chills. [] Respiratory: Denies cough or shortness of breath. [] Cardiovascular: Denies chest pain or edema. [] GI: Deniesnausea, vomiting, or diarrhea. [] : Denies dysuria; see HPI. [] Musculoskeletal: Denies joint pain. [] ; See HPI Integument: Denies rash. [] Neurologic: Denies headache Psychiatric: Denies depression or anxiety. [] Heart Score: Risk Factors: Risk Factors: DM, Current or recent (<one month) smoker, HTN, HLP, family history of CAD, obesity. Risk Scores: Score 0 - 3: 2.5% MACE over next 6 weeks - Discharge Home Score 4 - 6: 20.3% MACE over next 6 weeks - Admit for Clinical Observation Score 7 - 10: 72.7% MACE over next 6 weeks - Early Invasive Strategies Allergies: Allergies: Allergies Coded Allergies Type Severity Reaction Last Updated Verified peanut Allergy Intermediate itching 10/16/16 Yes Physical Exam: PE: Constitutional: Well developed, well nourished, no acute distress, non-toxic appearance, obese. [] HENT: Normocephalic, atraumatic, bilateral external ears normal, nose normal. [] Eyes: PERRLA, EOMI, conjunctiva normal, no discharge. [] Neck: Normal range of motion, no stridor. [] Cardiovascular:Heart rate regular rhythm Lungs & Thorax: Respirations even and unlabored, no retractions, no respiratory distress Abdomen: soft, no tenderness Skin: Warm, dry, no erythema, no rash. [] Extremities: No cyanosis, ROM intact, no edema. [] Neurologic: Alert and oriented X 3, no focal deficits noted. [] Psychologic: Affect normal, judgement normal, mood normal. [] Current Patient Data: Labs: Laboratory Tests Test 07/10/20 11:48 07/10/20 12:00 Urine Collection Type Unknown Urine Color Yellow Urine Clarity Clear Urine pH 6.0 (<5.0-8.0) Urine Specific [place] 1.020 (1.000-1.030) Urine Protein Negative mg/dL (NEG-TRACE) Urine Glucose (UA) Negative mg/dL (NEG) Urine Ketones (Stick) Negative mg/dL (NEG) Urine Blood Negative (NEG) Urine Nitrite Negative (NEG) Urine Bilirubin Negative (NEG) Urine Urobilinogen Dipstick 1.0 mg/dL (0.2 mg/dL) Urine Leukocyte Esterase Negative (NEG) Urine RBC 0 /HPF (0-2) Urine WBC 1-4 /HPF (0-4) Urine Squamous Epithelial Cells Few /LPF Urine Bacteria Few /HPF (0-FEW) Urine Mucus Slight /LPF POC Urine HCG, Qualitative Hcg positive (Negative) Vital Signs: Vital Signs Date Time Temp Pulse Resp B/P (MAP) Pulse Ox O2 Delivery O2 Flow Rate FiO2 07/10/20 11:40 98.1 88 16 138/74 (95) 100 Room Air 98.1 EKG: EKG: [] Radiology/Procedures: Radiology/Procedures: PROCEDURE: PREG 1ST TRIMESTER Examination: PREG 1ST TRIMESTER History: vag bleeding in preg; ABD /Pelvic pain in / Comparison/Correlation: None Findings: Transabdominal and transvaginal pelvic ultrasound exam was performed. Transvaginal technique was utilized better assess the adnexal structures. Uterus measures 8.7 cm x 6 x 5.2 cm. Myometrium is normal. Intrauterine gestational sac is present. The sac is identified. pole is present with heart rate of 104 bpm. [place]-rump length is 0.41 cm corresponding to 6 weeks 1 day. Ultrasound EDC is 03/04/2021. No subchorionic hemorrhage. Right ovary measures 3 cm x 2.3 cm 2.20. Left ovary measures 2.4 cm x 2 cm x 1.7. No suspicious adnexal mass lesions. No pelvic free fluid. Impression: Single living intrauterine gestation is present with crown-rump corresponding to 6 weeks 1 day gestation which matches the reported clinical age. No suspicious process. Electronically signed by: Milton Carter MD (07/10/2020 1:22 PM) [id number][] Course & Med Decision Making: Course & Med Decision Making Pertinent Labs and Imaging studies reviewed. (See chart for details) 24-year-old female presented to the emergency department with complaints of abdominal pain during . Patient's blood type per history is be positive, her urine hCG is positive, beta hCG is 5512; UA is unremarkable. Ultrasound revealed a single living intrauterine gestation with a crown-rump measuring 6 weeks 1 day gestation and a heart rate of 104. There was no suspicious process. I advised the patient of her current hCG level and the ultrasound findings. I encouraged her to follow-up with Dr. Quiroz in 2 days as planned. I instructed the pt to practice pelvic rest until evaluated by Dr. Quiroz, return to the emergency room if symptoms worsen. . Dragon Disclaimer: Dragon Disclaimer: This electronic medical record was generated, in whole or in part, using a voice recognition dictation system. Departure Departure Impression: Primary Impression: Abdominal pain during in first trimester Additional Impression: Threatened miscarriage in early Disposition: 01 HOME, SELF-CARE Condition: STABLE Referrals: COCO QUIROZ Jr, MD Patient Instructions: Abdominal Pain During , [id number], Threatened Miscarriage, [id number] Additional Instructions: Take a vitamin daily. Pelvic rest until follow up with Dr. Quiroz. The gestational age of your fetus is 6 weeks 1 day on ultrasound today, the heart rate was 104. Your HCG level was 5512. Follow up with Dr. Qiuroz's office in 1-2 days for repeat evaluation and labs. Return to the ER if symptoms worsen. 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
[2020-07-10 13:50] VITALS: BP 121/73
== END 2020-07-10 14:00 | disposition home or self-care (01) ==
LOC: ER 11:14
DX: O20.0 Threatened abortion (principal); O99.341 Other mental disorders complicating pregnancy, first trimester; F31.9 Bipolar disorder, unspecified; F41.9 Anxiety disorder, unspecified; Z3A.01 Less than 8 weeks gestation of pregnancy; Z91.010 Allergy to peanuts
CPT/HCPCS: 36415; 76801; 81001; 81025; 84702; 86900; 86901; 99285

== ENCOUNTER 2020-08-21 11:50 | Emergency (ER) | payer OTHER ==
[~2020-08-21] VITALS: Ht 175.3 cm; Wt 102.7 kg
[2020-08-21] MEDS ORDERED: ONDANSETRON PF 4 MG/2 ML VIAL. IV ONE (12:30)
[2020-08-21] MEDS ORDERED: IV NORMAL SALINE 1000ML BAG 1,000 ML IV ONE (12:30)
[2020-08-21 13:03] LABS: BASO % 0 % (0-3); EOS # 0.3 x10^3/uL (0.0-0.7); EOS % 2 % (0-3); HEMATOCRIT 38.8 % (36.0-47.0); HEMOGLOBIN 12.9 g/dL (12.0-15.5); LYMPH # 2.8 x10^3/uL (1.0-4.8); LYMPH % 23 % (24-48); MEAN CORPUSCULAR HEMOGLOBIN 26 pg (25-35); MEAN CORPUSCULAR HGB CONC 33 g/dL (31-37); MEAN CORPUSCULAR VOLUME 78 fL (79-100); MONO # 0.4 x10^3/uL (0.0-1.1); MONO % 4 % (0-9); NEUT # 8.6 x10^3/uL (1.8-7.7); NEUT % 71 % (31-73); PLATELET COUNT 268 x10^3/uL (140-400); RED BLOOD COUNT 4.97 x10^6/uL (3.50-5.40); RED CELL DISTRIBUTION WIDTH 17.2 % (11.5-14.5); WHITE BLOOD COUNT 12.2 x10^3/uL (4.0-11.0)
[2020-08-21 13:12] LABS: CALCIUM 9.7 mg/dL (8.5-10.1); CREATININE 0.5 mg/dL (0.6-1.0); GFR 181.9; POTASSIUM 4.2 mmol/L (3.5-5.1)
[2020-08-21 13:17] LABS: ALBUMIN 3.3 g/dL (3.4-5.0); ALBUMIN/GLOBULIN RATIO 0.9 (1.0-1.7); MAGNESIUM 1.8 mg/dL (1.8-2.4); TOTAL BILIRUBIN 0.2 mg/dL (0.2-1.0); TOTAL PROTEIN 6.8 g/dL (6.4-8.2)
[2020-08-21 13:27] LABS: BILIRUBIN,URINE NEGATIVE (NEG); CLARITY,URINE CLOUDY; COLOR,URINE YELLOW; NITRITE,URINE NEGATIVE (NEG); PROTEIN,URINE NEGATIVE (NEG-TRACE)
[2020-08-21 13:50] LABS: BACTERIA,URINE MANY /HPF (0-FEW); RBC,URINE 0 /HPF (0-2)
--- NOTE | 2020-08-21 14:05 | ED.ADGEN ---
Past Medical History Past Medical History: Anxiety, Bipolar, Depression Past Surgical History: No Surgical History Smoking Status: Never Smoker Alcohol Use: None Drug Use: None General Adult EDM: Chief Complaint: VOMITING IN HPI: HPI: Patient is a 24 year old female, 7, para 6, who presents emergency room with complaints of lower abdominal pain nausea, and vomiting during . Patient reports that she is 12 weeks , she has been experiencing nausea and vomiting for the last 2 days. Patient reports she has vomited 6 times in the last 24 hours. She denies any hematemesis, diarrhea, back pain, dysuria, or hematuria. She denies any irregular vaginal bleeding or vaginal discharge. She reports that she has had some urinary frequency but denies any low back pain. She also denies any fever, cough, nasal congestion, shortness of breath, chest pain, or palpitations. Patient reports her estimated due date is March 042020. She states she called Dr. Quiroz's office this morning who advised her to go to the ER for further evaluation. She currently rates her abdominal discomfort a 5 out of 10 on the pain scale, she states that the pain is worse with vomiting. Review of Systems: Review of Systems: Complete ROS is negative unless otherwise noted in HPI. Current Medications: Current Medications Medications (Trade) Dose Ordered Sig/Christi Start Time Stop Time Status Last Admin Dose Admin Ondansetron HCl (Zofran) 4 mg 1X ONCE 08/21/20 12:30 08/21/20 12:31 DC 08/21/20 14:04 4 MG Sodium Chloride 1,000 ml @ 1,000 mls/hr 1X ONCE 08/21/20 12:30 08/21/20 13:29 DC 08/21/20 14:04 1,000 MLS/HR Allergies: Allergies: Allergies Coded Allergies Type Severity Reaction Last Updated Verified peanut Allergy Intermediate itching 10/16/16 Yes Physical Exam: PE: See Above Constitutional: Well developed, well nourished, no acute distress, non-toxic ap pearance, obese. [] HENT: Normocephalic, atraumatic, bilateral external ears normal, nose normal. [] Eyes: PERRLA, EOMI, conjunctiva normal, no discharge. [] Neck: Normal range of motion, no stridor. [] Cardiovascular:Heart rate regular rhythm Lungs & Thorax: Respirations even and unlabored, no retractions, no respiratory distress Abdomen: soft, epigastric and suprapubic tenderness to palpation, no rebound tenderness, no guarding, no palpable uterine fundus., No mass Back: Nontender, no CVA tenderness Skin: Warm, dry, no erythema, no rash. [] Extremities: No cyanosis, ROM intact, no edema. [] Neurologic: Alert and oriented X 3, no focal deficits noted. [] Psychologic: Affect normal, judgement normal, mood normal. [] Current Patient Data: Labs: Laboratory Tests Test 08/21/20 12:55 08/21/20 13:09 White Blood Count 12.2 x10^3/uL (4.0-11.0) H Red Blood Count 4.97 x10^6/uL (3.50-5.40) Hemoglobin 12.9 g/dL (12.0-15.5) Hematocrit 38.8 % (36.0-47.0) Mean Corpuscular Volume 78 fL (79-100) L Mean Corpuscular Hemoglobin 26 pg (25-35) Mean Corpuscular Hemoglobin Concent 33 g/dL (31-37) Red Cell Distribution Width 17.2 % (11.5-14.5) H Platelet Count 268 x10^3/uL (140-400) Neutrophils (%) (Auto) 71 % (31-73) Lymphocytes (%) (Auto) 23 % (24-48) L Monocytes (%) (Auto) 4 % (0-9) Eosinophils (%) (Auto) 2 % (0-3) Basophils (%) (Auto) 0 % (0-3) Neutrophils # (Auto) 8.6 x10^3/uL (1.8-7.7) H Lymphocytes # (Auto) 2.8 x10^3/uL (1.0-4.8) Monocytes # (Auto) 0.4 x10^3/uL (0.0-1.1) Eosinophils # (Auto) 0.3 x10^3/uL (0.0-0.7) Basophils # (Auto) 0.0 x10^3/uL (0.0-0.2) Sodium Level 138 mmol/L (136-145) Potassium Level 4.2 mmol/L (3.5-5.1) Chloride Level 101 mmol/L (98-107) Carbon Dioxide Level 26 mmol/L (21-32) Anion Gap 11 (6-14) Blood Urea Nitrogen 5 mg/dL (7-20) L Creatinine 0.5 mg/dL (0.6-1.0) L Estimated GFR (Cockcroft-Gault) 181.9 BUN/Creatinine Ratio 10 (6-20) Glucose Level 96 mg/dL (70-99) Calcium Level 9.7 mg/dL (8.5-10.1) Magnesium Level 1.8 mg/dL (1.8-2.4) Total Bilirubin 0.2 mg/dL (0.2-1.0) Aspartate Amino Transferase (AST) 11 U/L (15-37) L Alanine Aminotransferase (ALT) 14 U/L (14-59) Alkaline Phosphatase 74 U/L (46-116) Total Protein 6.8 g/dL (6.4-8.2) Albumin 3.3 g/dL (3.4-5.0) L Albumin/Globulin Ratio 0.9 (1.0-1.7) L Lipase 114 U/L (73-393) Urine Collection Type Unknown Urine Color Yellow Urine Clarity Cloudy Urine pH 6.0 (<5.0-8.0) Urine Specific [place] 1.020 (1.000-1.030) Urine Protein Negative mg/dL (NEG-TRACE) Urine Glucose (UA) Negative mg/dL (NEG) Urine Ketones (Stick) Negative mg/dL (NEG) Urine Blood Negative (NEG) Urine Nitrite Negative (NEG) Urine Bilirubin Negative (NEG) Urine Urobilinogen Dipstick 1.0 mg/dL (0.2 mg/dL) Urine Leukocyte Esterase Small (NEG) Urine RBC 0 /HPF (0-2) Urine WBC 5-10 /HPF (0-4) Urine Squamous Epithelial Cells Many /LPF Urine Bacteria Many /HPF (0-FEW) Urine Mucus Marked /LPF Laboratory Tests 08/21/20 12:55 Laboratory Tests 08/21/20 12:55 Vital Signs: Vital Signs Date Time Temp Pulse Resp B/P (MAP) Pulse Ox O2 Delivery O2 Flow Rate FiO2 08/21/20 11:55 98.4 78 20 121/68 (85) 98 Room Air 98.4 EKG: EKG: [] Heart Score: Risk Factors: Risk Factors: DM, Current or recent (<one month) smoker, HTN, HLP, family history of CAD, obesity. Risk Scores: Score 0 - 3: 2.5% MACE over next 6 weeks - Discharge Home Score 4 - 6: 20.3% MACE over next 6 weeks - Admit for Clinical Observation Score 7 - 10: 72.7% MACE over next 6 weeks - Early Invasive Strategies Radiology/Procedures: Radiology/Procedures: PROCEDURE: OB < 14 WKS OB < 14 WKS History: Reason: lower abd pain 12 weeks preg / Spl. Instructions: / History: Comparison: July 10, 2020. Technique: Grayscale and color Doppler imaging of the pelvis was performed using transabdominal technique. Findings: The uterus measures 11.0 x 9.2 x 7.7 cm. Single intrauterine gestational sac with regular appearance. Yolk sac is not identified. Fetus is identified with crown-rump length 5.5 cm. Estimated gestational age by ultrasound 12 weeks 1 day. heart rate 171 bpm. Estimated date of completion by ultrasound March 04, 2021. Right ovary measures 2.5 x 1.9 x 1.6 cm. Left ovary measures 2.9 x 2.8 x 2.0 cm. Normal Doppler flow to the ovaries bilaterally. No adnexal masses are seen. IMPRESSION: 1. Single intrauterine patency with gestational age 12 weeks 1 day and heart rate 171 bpm. Recommend routine anatomic screening at 18-22 weeks. [] Course & Med Decision Making: Course & Med Decision Making Pertinent Labs and Imaging studies reviewed. (See chart for details) [] Dragon Disclaimer: Marco A Disclaimer: This electronic medical record was generated, in whole or in part, using a voice recognition dictation system. Departure Departure Impression: Primary Impression: UTI (urinary tract infection) in in first trimester Additional Impression: Nausea and vomiting during prior to 22 weeks gestation Disposition: 01 DC HOME SELF CARE/HOMELESS Condition: STABLE Referrals: COCO QUIROZ Jr, MD Patient Instructions: Nausea and Vomiting, Fevc-so-Hwae, - Urinary Tract Infection Additional Instructions: Fill prescriptions and use them as directed. Recommend clear fluids for the next 24 hours. Then you may advance to bland foods such as bananas, rice, applesau ce, and dry toast. Avoid bladder irritants such as caffeine, carbonation, and spicy foods. Follow-up with Dr. QUIROZ in 1 to 2 days, return to the ER if symptoms worsen. Scripts Ondansetron (ONDANSETRON ODT) 4 Mg Tab.rapdis 1 TAB PO PRN Q6-8HRS PRN for NAUSEA/VOMITING, #16 TAB 0 Refills Prov: MARCO A RAMIREZ APRN 08/21/20 Cephalexin (CEPHALEXIN) 500 Mg Tablet 1 TAB PO BID for 7 Days, #14 TAB 0 Refills Prov: MARCO A RAMIREZ APRN 08/21/20 Problem Qualifiers MARCO A RAMIREZ APRN Aug 21, 2020 14:05
--- NOTE | 2020-08-21 15:02 | RAD ---
OB < 14 WKS History: Reason: lower abd pain 12 weeks preg / Spl. Instructions: / History: Comparison: July 10, 2020. Technique: Grayscale and color Doppler imaging of the pelvis was performed using transabdominal technique. Findings: The uterus measures 11.0 x 9.2 x 7.7 cm. Single intrauterine gestational sac with regular appearance. Yolk sac is not identified. Fetus is identified with crown-rump length 5.5 cm. Estimated gestational age by ultrasound 12 weeks 1 day. heart rate 171 bpm. Estimated date of completion by ultrasound March 04, 2021. Right ovary measures 2.5 x 1.9 x 1.6 cm. Left ovary measures 2.9 x 2.8 x 2.0 cm. Normal Doppler flow to the ovaries bilaterally. No adnexal masses are seen. IMPRESSION: 1. Single intrauterine patency with gestational age 12 weeks 1 day and heart rate 171 bpm. Recommend routine anatomic screening at 18-22 weeks. Electronically signed by: Cyril Ellis DO (08/21/2020 3:00 PM) [id number]
[2020-08-21 15:48] VITALS: BP 124/68
[2020-08-21] MEDS ORDERED: ONDA4TAB12 PO (16:12)
[2020-08-21] MEDS ORDERED: CEPH500T PO (16:12)
== END 2020-08-21 16:30 | disposition home or self-care (01) ==
LOC: ER 11:50
DX: O23.41 Unspecified infection of urinary tract in pregnancy, first trimester (principal); O21.9 Vomiting of pregnancy, unspecified; R10.30 Lower abdominal pain, unspecified; F41.9 Anxiety disorder, unspecified; F32.9 Major depressive disorder, single episode, unspecified; Z91.010 Allergy to peanuts; Z3A.12 12 weeks gestation of pregnancy
CPT/HCPCS: 36415; 76801; 80053; 81001; 83690; 83735; 85025; 87086; 96361; 96374; 99285; J2405; J7030

== ENCOUNTER → 2020-10-22 | Outpatient (CLI) | payer OTHER ==
[~2020-10-22] MED LIST changes: +CEPH500T PO; +ONDA4TAB12 PO
--- NOTE | 2020-10-22 16:29 | RAD ---
EXAM: Ultrasound OB Greater than 14 weeks INDICATION: Reason: EFW/ANATOMY / Spl. Instructions: / History: TECHNIQUE: Real-time obstetrical ultrasound was performed with permanent freeze-frame documentation. COMPARISON: OB less than 14 weeks of 08/21/2020 FINDINGS: POSITION: Cephalic HEART RATE: 145 bpm JAMEEL: Subjectively normal. Not measured this exam. PLACENTA: Anterior grade 1. CERVICAL LENGTH: 4.6 cm MATERNAL UTERUS: Unremarkable. MATERNAL ADNEXA: Unremarkable. AGE/DATES: Gestational Age by LMP: 21 weeks 1 day Gestation Age by US: 21 weeks 2 days EDC by LMP: 03/03/2021 EDC by US: 03/02/2021 WEIGHT: 433 grams +/- 64 grams PERCENTILE WEIGHT: Not estimated. BIOMETRIC PARAMETERS: BPD: 4.9 cm corresponding with 20 weeks 5 days HC: 18.9 cm corresponding with 21 weeks 1 day AC: 16.4 cm corresponding with 21 weeks 3 days FL: 3.7 cm corresponding with 21 weeks 6 days ANATOMY: CARDIAC: Normal four chamber heart. Normal right and left ventricular outflow tracts. UMBILICAL CORD: Normal 3 vessel cord. Normal cord insertion. BRAIN: Unremarkable. NOSE/LIPS: Unremarkable. SPINE: Unremarkable. EXTREMITIES: Unremarkable. STOMACH: Unremarkable. KIDNEYS: Unremarkable. BLADDER: Unremarkable. IMPRESSION: Normal OB ultrasound demonstrating a single viable fetus in cephalic position. Estimated gestational age of 21 weeks and 2 days and EDC of March 02, 2021. Electronically signed by: Óscar House MD (10/22/2020 4:26 PM) [id number]
== END ==
LOC: US 07:03
PROVIDERS: ATTEND Obstetrics & Gynecology
DX: O26.842 Uterine size-date discrepancy, second trimester (principal); Z3A.21 21 weeks gestation of pregnancy
CPT/HCPCS: 76805

== ENCOUNTER 2020-11-13 13:09 | Observation (INO) | payer OTHER ==
[2020-11-13] MEDS ORDERED: ACETAMINOPHEN 325 MG TABLET. PO PRN (13:30)
[2020-11-13] MEDS ORDERED: TERBUTALINE 1 MG/ML VIAL. SQ PRN (13:30)
[2020-11-13] MEDS ORDERED: IV RINGERS,LACTATED 1000ML 1,000 ML IV SCH (13:30)
[2020-11-13 14:10] LABS: BILIRUBIN,URINE NEGATIVE (NEG); CLARITY,URINE CLEAR; COLOR,URINE YELLOW; NITRITE,URINE NEGATIVE (NEG); PROTEIN,URINE NEGATIVE (NEG-TRACE)
[2020-11-13 14:39] LABS: AMNIO PT NEGATIVE
[2020-11-13 15:00] LABS: RBC,URINE 0 /HPF (0-2); WBC,URINE RARE /HPF (0-4)
[2020-11-13 15:01] LABS: BACTERIA,URINE MANY /HPF (0-FEW)
--- NOTE | 2020-11-13 16:22 | RAD ---
INDICATION: Reason: had gush of fluid this am; placenta placement / Spl. Instructions: / History: COMPARISON: October 22, 2020 TECHNIQUE: Grayscale and color ultrasound images uterus and adnexa. FINDINGS: Intrauterine is identified with movement as well as cardiac activity seen with a hear t beat of 152. Fluid is seen within the bladder and stomach. Breech presentation at time of exa m. Cervical length is 57 mm. Placenta is anterior. Amniotic fluid index is 12.2. Estimated weig ht is 691 g, 44 percentile. Estimated gestational age 24 weeks and 1 day with estimated due date of . The head circumference and biparietal diameter around the 19th percentile with abdominal ci rcumference 53rd percentile and femur length 36 percent IMPRESSION: * Intrauterine is identified with estimated gestational age of 24 weeks and 1 day with po sitive heartbeat and amniotic fluid index of 12.2. Electronically signed by: Cameron Rider MD (11/13/2020 4:20 PM) [id number]
== END 2020-11-13 16:10 | disposition home or self-care (01) ==
LOC: 3 SO LND 13:09
PROVIDERS: ADMIT Obstetrics & Gynecology; ATTEND Obstetrics & Gynecology
DX: O46.92 Antepartum hemorrhage, unspecified, second trimester (principal); Z3A.24 24 weeks gestation of pregnancy; Z79.899 Other long term (current) drug therapy
CPT/HCPCS: 36415; 59025; 76815; 81001; 84112; 87086; G0378; G0379

== ENCOUNTER 2021-01-23 14:45 | Observation (INO) | payer OTHER ==
[2021-01-23] MEDS ORDERED: IV RINGERS,LACTATED 1000ML 1,000 ML IV PRN (15:15)
[2021-01-23 15:42] LABS: BILIRUBIN,URINE NEGATIVE (NEG); CLARITY,URINE CLOUDY; COLOR,URINE YELLOW; NITRITE,URINE NEGATIVE (NEG); PH,URINE 6.5 (<5.0-8.0); PROTEIN,URINE NEGATIVE (NEG-TRACE); UROBILINOGEN,URINE 0.2 mg/dL (0.2 mg/dL)
[2021-01-23 16:04] LABS: BACTERIA,URINE FEW /HPF (0-FEW)
[2021-01-23 16:06] LABS: RBC,URINE 0 /HPF (0-2)
== END 2021-01-23 17:00 | disposition home or self-care (01) ==
LOC: 3 SO LND 14:45
PROVIDERS: ADMIT Obstetrics & Gynecology; ATTEND Obstetrics & Gynecology
DX: O26.893 Other specified pregnancy related conditions, third trimester (principal); R10.9 Unspecified abdominal pain; R10.2 Pelvic and perineal pain; O62.9 Abnormality of forces of labor, unspecified; Z3A.34 34 weeks gestation of pregnancy
CPT/HCPCS: 59025; 81001; 87086; G0378; G0379

== ENCOUNTER 2021-02-04 08:52 | Observation (INO) | payer OTHER ==
[2021-02-04] MEDS ORDERED: IV RINGERS,LACTATED 1000ML 1,000 ML IV PRN (09:00)
[2021-02-04 09:33] LABS: BILIRUBIN,URINE NEGATIVE (NEG); CLARITY,URINE CLEAR; COLOR,URINE YELLOW; NITRITE,URINE NEGATIVE (NEG); PROTEIN,URINE NEGATIVE (NEG-TRACE); UROBILINOGEN,URINE 0.2 mg/dL (0.2 mg/dL)
[2021-02-04 09:44] LABS: BARBITURATES NEG (NEG); BENZODIAZEPINES NEG (NEG); CANNABINOIDS NEG (NEG); COCAINE NEG (NEG); METHADONE NEG (NEG); OPIATES NEG (NEG); PHENCYCLIDINE NEG (NEG)
[2021-02-04 09:45] LABS: AMPHETAMINE/METHAMPHETAMINE NEG (NEG)
[2021-02-04 09:50] LABS: BACTERIA,URINE FEW /HPF (0-FEW); RBC,URINE 0 /HPF (0-2)
[2021-02-04 10:47] LABS: AMNIO PT NEGATIVE
== END 2021-02-04 12:45 | disposition home or self-care (01) ==
LOC: 3 SO LND 08:52
PROVIDERS: ADMIT Obstetrics & Gynecology; ATTEND Obstetrics & Gynecology
DX: O42.913 Preterm premature rupture of membranes, unspecified as to length of time between rupture and onset of labor, third trimester (principal); O62.9 Abnormality of forces of labor, unspecified; Z3A.36 36 weeks gestation of pregnancy; Z79.899 Other long term (current) drug therapy
CPT/HCPCS: 36415; 59025; 80307; 81001; 84112; 87086; G0378; G0379

== ENCOUNTER → 2021-02-21 | Outpatient (CLI) | payer OTHER | LOC: LAB 08:39 | PROVIDERS: ATTEND Obstetrics & Gynecology | DX: Z01.812 Encounter for preprocedural laboratory examination (principal); Z20.822 Contact with and (suspected) exposure to COVID-19 | CPT/HCPCS: U0003; U0005 ==

== ENCOUNTER 2021-04-18 14:20 | Emergency (ER) | payer OTHER ==
[~2021-04-18] VITALS: Ht 172.7 cm; Wt 102.0 kg
--- NOTE | 2021-04-18 15:45 | RAD ---
Examination: LEFT LOWER EXTREMITY - UNILATERAL VENOUS DOPPLER Technique: Ultrasound evaluation of the left lower extremity was performed from the groin to the uppe r calf with bauman scale, spectral and color doppler evaluation. Indication: Leg swelling Comparison: None Findings: There is normal venous flow and compressibility of left common femoral vein, femoral vein, popliteal vein, and visualized proximal calf veins. Impression: No evidence for deep vein thrombosis of left lower extremity from the level of the calf v eins to the groins. Electronically signed by: Yohan Hart MD (04/18/2021 3:42 PM) [id number]
[2021-04-18 16:30] LABS: BASO % 0 % (0-3); EOS # 0.1 x10^3/uL (0.0-0.7); EOS % 1 % (0-3); HEMATOCRIT 39.5 % (36.0-47.0); LYMPH # 2.7 x10^3/uL (1.0-4.8); LYMPH % 20 % (24-48); MEAN CORPUSCULAR HEMOGLOBIN 28 pg (25-35); MEAN CORPUSCULAR HGB CONC 33 g/dL (31-37); MEAN CORPUSCULAR VOLUME 86 fL (79-100); MONO # 0.7 x10^3/uL (0.0-1.1); MONO % 5 % (0-9); NEUT # 9.9 x10^3/uL (1.8-7.7); NEUT % 74 % (31-73); PLATELET COUNT 361 x10^3/uL (140-400); RED BLOOD COUNT 4.59 x10^6/uL (3.50-5.40); WHITE BLOOD COUNT 13.4 x10^3/uL (4.0-11.0)
[2021-04-18 16:31] LABS: BILIRUBIN,URINE SMALL (NEG); CLARITY,URINE CLEAR; NITRITE,URINE NEGATIVE (NEG); PROTEIN,URINE NEGATIVE (NEG-TRACE)
--- NOTE | 2021-04-18 16:52 | PHYS DOC ---
Past Medical History Past Medical History: Anxiety, Bipolar, Depression Past Surgical History: No Surgical History Smoking Status: Never Smoker Alcohol Use: None Drug Use: None General Adult EDM: Chief Complaint: MULTIPLE COMPLAINTS HPI: HPI: Patient is a 25 year old female who present to ER due to left lower extremity swelling and pain off and on for 5 days. Patient denies any history of blood clot disorder, she not a smoker, seen on control medication. She denies any recent travel operation. Patient also said she noted some blood in her stool for the last 3-day whenever she had a bowel movement. Patient also complaining of abdominal cramping. Patient denies any nausea vomiting, no cough, no fever. Review of Systems: Review of Systems: Constitutional: Denies fever or chills. [] Eyes: Denies change in visual acuity. [] HENT: Denies nasal congestion or sore throat. [] Respiratory: Denies cough or shortness of breath. [] Cardiovascular: Denies chest pain or edema. [] GI: Positive for abdominal pain, no nausea vomiting, no diarrhea. Positive for blood in her stool : Denies dysuria. [] Musculoskeletal: Denies back pain or joint pain. Positive for left leg pain and swelling. Integument: Denies rash. [] Neurologic: Denies headache, focal weakness or sensory changes. [] Endocrine: Denies polyuria or polydipsia. [] Lymphatic: Denies swollen glands. [] Psychiatric: Denies depression or anxiety. [] Heart Score: C/O Chest Pain: N/A Risk Factors: Risk Factors: DM, Current or recent (<one month) smoker, HTN, HLP, family history of CAD, obesity. Risk Scores: Score 0 - 3: 2.5% MACE over next 6 weeks - Discharge Home Score 4 - 6: 20.3% MACE over next 6 weeks - Admit for Clinical Observation Score 7 - 10: 72.7% MACE over next 6 weeks - Early Invasive Strategies Allergies: Allergies: Allergies Coded Allergies Type Severity Reaction Last Updated Verified peanut Allergy Intermediate itching 10/16/16 Yes Physical Exam: PE: Constitutional: Well developed, well nourished, no acute distress, non-toxic appearance. [] HENT: Normocephalic, atraumatic, bilateral external ears normal, oropharynx moist, no oral exudates, nose normal. [] Eyes: PERRLA, EOMI, conjunctiva normal, no discharge. [] Neck: Normal range of motion, no tenderness, supple, no stridor. [] Cardiovascular:Heart rate regular rhythm, no murmur [] Lungs & Thorax: Bilateral breath sounds clear to auscultation [] Abdomen: Bowel sounds normal, soft, tenderness to palpation in suprapubic area, no masses, no pulsatile masses. [] Skin: Warm, dry, no erythema, no rash. [] Back: No tenderness, no CVA tenderness. [] Extremities: No tenderness, no cyanosis, no clubbing, ROM intact, no edema. There is no calf swelling on left or right side, tenderness to palpation on left calf. Neurologic: Alert and oriented X 3, normal motor function, normal sensory function, no focal deficits noted. [] Psychologic: Affect normal, judgement normal, mood normal. [] Current Patient Data: Labs: Laboratory Tests Test 04/18/21 16:18 White Blood Count 13.4 x10^3/uL (4.0-11.0) H Red Blood Count 4.59 x10^6/uL (3.50-5.40) Hemoglobin 13.0 g/dL (12.0-15.5) Hematocrit 39.5 % (36.0-47.0) Mean Corpuscular Volume 86 fL (79-100) Mean Corpuscular Hemoglobin 28 pg (25-35) Mean Corpuscular Hemoglobin Concent 33 g/dL (31-37) Red Cell Distribution Width 15.0 % (11.5-14.5) H Platelet Count 361 x10^3/uL (140-400) Neutrophils (%) (Auto) 74 % (31-73) H Lymphocytes (%) (Auto) 20 % (24-48) L Monocytes (%) (Auto) 5 % (0-9) Eosinophils (%) (Auto) 1 % (0-3) Basophils (%) (Auto) 0 % (0-3) Neutrophils # (Auto) 9.9 x10^3/uL (1.8-7.7) H Lymphocytes # (Auto) 2.7 x10^3/uL (1.0-4.8) Monocytes # (Auto) 0.7 x10^3/uL (0.0-1.1) Eosinophils # (Auto) 0.1 x10^3/uL (0.0-0.7) Basophils # (Auto) 0.0 x10^3/uL (0.0-0.2) Laboratory Tests 04/18/21 16:18 Vital Signs: Vital Signs Date Time Temp Pulse Resp B/P (MAP) Pulse Ox O2 Delivery O2 Flow Rate FiO2 04/18/21 15:10 90 18 137/65 (71) 100 Room Air EKG: EKG: [] Radiology/Procedures: Radiology/Procedures: [][facility] [address] [place] [address] IMAGING REPORT Signed PATIENT: MARK THORNTON ACCOUNT: [id number] : 1995 LOCATION: ER AGE: 25 SEX: F EXAM STATUS: REG ER ORD. PHYSICIAN: NICOLE HENSLEY DO REASON: abdominal pain, bloody stool for 3 days PROCEDURE: CT ABD PELV W/ IV CONTRST ONLY EXAMINATION: CT ABDOMEN+PELVIS W CLINICAL HISTORY: Abdominal pain, bloody stool for 3 days TECHNIQUE: CT of the abdomen and pelvis was performed using standard technique, scanning from just above the dome of the diaphragm to the symphysis pubis following administration of intravenous contrast. CT Dose Reduction Employed: One or more of the following individualized dose reduction techniques were utilized for this examination: 1. Automated exposure control 2. Adjustment of the mA and/or kV according to patient size 3. Use of iterative reconstruction technique. COMPARISON: 05/17/2016 FINDINGS: Visualized heart and lungs unremarkable. Minimally distended gallbladder suboptimally evaluated. Liver, pancreas, spleen, and adrenal glands unremarkable. Subcentimeter hypoenhancing cortical focus in the left kidney, too small adequately characterize but likely benign. Minimally filled urinary bladder. Uterus and ovaries within normal limits for patient's age. Asymmetrically prominent left ovarian vein, nonspecific but can be seen with pelvic congestion syndrome. No bowel dilation or definite wall thickening. Mild stool and gas throughout the colon. Tiny appendicolith, appendix otherwise unremarkable. No abdominal aortic or iliac artery aneurysm. No evidence of acute osseous abnormality. IMPRESSION: No evidence of acute abdominopelvic abnormality. Incidentally noted prominent left ovarian vein, nonspecific but can be seen with pelvic congestion syndrome. Correlate clinically. Additional nonacute findings as described. Electronically signed by: Kishore Franks DO (04/18/2021 5:51 PM) [facility] DICTATED and SIGNED BY: KISHORE FRANKS DO DATE: 04/18/21 [id number] [facility] [address] [place] [address] IMAGING REPORT Signed PATIENT: MARK THORNTON ACCOUNT: [id number] : 1995 LOCATION: ER AGE: 25 SEX: F EXAM STATUS: PRE ER ORD. PHYSICIAN: NICOLE HENSLEY DO REASON: left leg pain and swelling PROCEDURE: VENOUS LOWER EXTREMITY LEFT Examination: LEFT LOWER EXTREMITY - UNILATERAL VENOUS DOPPLER Technique: Ultrasound evaluation of the left lower extremity was performed from the groin to the upper calf with abuman scale, spectral and color doppler evaluati on. Indication: Leg swelling Comparison: None Findings: There is normal venous flow and compressibility of left common femoral vein, femoral vein, popliteal vein, and visualized proximal calf veins. Impression: No evidence for deep vein thrombosis of left lower extremity from the level of the calf veins to the groins. Electronically signed by: Yohan Galloway MD (04/18/2021 3:42 PM) [facility] DICTATED and SIGNED BY: YOHAN GALLOWAY MD DATE: 04/18/21 [id number] 0 Course & Med Decision Making: Course & Med Decision Making Pertinent Labs and Imaging studies reviewed. (See chart for details) Patient is a 25-year-old female who present to ER due to left lower extremity pain and swelling with intermittent rectal bleeding with bowel movement. Patient is not on blood thinner. CT scan head abdomen pelvis did not show any acute problem. Venous Doppler left leg did not show evidence of DVT. His lab work came back normal. Patient vital signs was normal. Patient is not on any blood thinner. Suspect that patient has some form of internal hemorrhoid. Patient will be discharged home, she will need to follow-up with her family physician for outpatient reevaluation and treatment. Patient was amenable to plan of care. [place] Disclaimer: Dragon Disclaimer: This electronic medical record was generated, in whole or in part, using a voice recognition dictation system. Departure Departure Impression: Primary Impression: Abdominal pain Additional Impressions: Leg pain, left Rectal bleed Disposition: HOME / SELF CARE / HOMELESS Condition: STABLE Referrals: NO PCP (PCP) Follow up with your doctor as needed. Patient Instructions: Abdominal Pain, Leg Cramps, Rectal Bleeding Additional Instructions: Thank you for visiting our Emergency Department. We appreciate you trusting us with your care. If any additional problems come up don't hesitate to return to visit us. Please follow up with your primary care provider so they can plan additional care if needed and know about the problem that you had. If symptoms worsen come back to the Emergency Department. Any concerning symptoms that start such as chest pain, shortness of air, weakness or numbness on one side of the body, running high fevers or any other concerning symptoms return to the ER. NICOLE HENSLEY DO Apr 18, 2021 16:52
[2021-04-18 16:53] LABS: COLOR,URINE DK YELLOW
[2021-04-18 16:54] LABS: RBC,URINE >40 /HPF (0-2)
[2021-04-18 16:55] LABS: BACTERIA,URINE MODERATE /HPF (0-FEW)
[2021-04-18 16:58] LABS: CALCIUM 8.8 mg/dL (8.5-10.1); CREATININE 0.9 mg/dL (0.6-1.0); GFR 91.6
[2021-04-18 17:03] LABS: ALBUMIN 3.5 g/dL (3.4-5.0); TOTAL BILIRUBIN 0.2 mg/dL (0.2-1.0); TOTAL PROTEIN 7.1 g/dL (6.4-8.2)
[2021-04-18 17:11] LABS: U PREG PATIENT NEGATIVE (NEG)
[2021-04-18] MEDS ORDERED: IOHEXOL 300 MG/ML 100ML VIAL. IV ONE (17:15)
[2021-04-18] MEDS ORDERED: CONTRAST GIVEN. MC PRN (17:15)
[2021-04-18 17:30] VITALS: BP 136/62
--- NOTE | 2021-04-18 17:53 | RAD ---
EXAMINATION: CT ABDOMEN+PELVIS W CLINICAL HISTORY: Abdominal pain, bloody stool for 3 days TECHNIQUE: CT of the abdomen and pelvis was performed using standard technique, scanning from just ab ove the dome of the diaphragm to the symphysis pubis following administration of intravenous contrast . CT Dose Reduction Employed: One or more of the following individualized dose reduction techniques wer e utilized for this examination: 1. Automated exposure control 2. Adjustment of the mA and/or kV ac cording to patient size 3. Use of iterative reconstruction technique. COMPARISON: 05/17/2016 FINDINGS: Visualized heart and lungs unremarkable. Minimally distended gallbladder suboptimally evaluated. Liver, pancreas, spleen, and adrenal glands u nremarkable. Subcentimeter hypoenhancing cortical focus in the left kidney, too small adequately characterize but likely benign. Minimally filled urinary bladder. Uterus and ovaries within normal limits for patient's age. Asymmetr ically prominent left ovarian vein, nonspecific but can be seen with pelvic congestion syndrome. No bowel dilation or definite wall thickening. Mild stool and gas throughout the colon. Tiny appendic olith, appendix otherwise unremarkable. No abdominal aortic or iliac artery aneurysm. No evidence of acute osseous abnormality. IMPRESSION: No evidence of acute abdominopelvic abnormality. Incidentally noted prominent left ovarian vein, nonspecific but can be seen with pelvic congestion sy ndrome. Correlate clinically. Additional nonacute findings as described. Electronically signed by: Kishore Wing DO (04/18/2021 5:51 PM) [facility]
== END 2021-04-18 18:45 | disposition home or self-care (01) ==
LOC: ER 14:20
DX: K62.5 Hemorrhage of anus and rectum (principal); M79.605 Pain in left leg; R10.30 Lower abdominal pain, unspecified; F31.9 Bipolar disorder, unspecified
CPT/HCPCS: 36415; 74177; 80053; 81001; 81025; 85025; 87086; 93971; 99285; Q9967

== ENCOUNTER 2022-02-11 12:42 | Emergency (ER) | payer OTHER ==
[~2022-02-11] VITALS: Ht 175.3 cm; Wt 131.7 kg
[2022-02-11] MEDS ORDERED: IV NORMAL SALINE 1000ML BAG 1,000 ML IV ONE (13:00)
[2022-02-11] MEDS ORDERED: MORPHINE SULFATE 4 MG/ML INJ. IV PRN (13:00)
[2022-02-11] MEDS ORDERED: ONDANSETRON PF 4 MG/2 ML VIAL. IVP ONE ×2 (13:00→15:00)
[2022-02-11 13:06] VITALS: BP 146/82
[2022-02-11 13:14] LABS: BASO % 0 % (0-3); EOS # 0.1 x10^3/uL (0.0-0.7); EOS % 1 % (0-3); HEMATOCRIT 44.4 % (36.0-47.0); HEMOGLOBIN 14.7 g/dL (12.0-15.5); LYMPH # 3.5 x10^3/uL (1.0-4.8); LYMPH % 27 % (24-48); MEAN CORPUSCULAR HEMOGLOBIN 28 pg (25-35); MEAN CORPUSCULAR HGB CONC 33 g/dL (31-37); MEAN CORPUSCULAR VOLUME 83 fL (79-100); MONO # 0.4 x10^3/uL (0.0-1.1); MONO % 3 % (0-9); NEUT # 8.9 x10^3/uL (1.8-7.7); NEUT % 69 % (31-73); PLATELET COUNT 309 x10^3/uL (140-400); RED BLOOD COUNT 5.35 x10^6/uL (3.50-5.40); RED CELL DISTRIBUTION WIDTH 14.3 % (11.5-14.5); WHITE BLOOD COUNT 13.1 x10^3/uL (4.0-11.0)
[2022-02-11] MEDS ORDERED: IOHEXOL 300 MG/ML 100ML VIAL. IV ONE (13:15)
[2022-02-11 13:24] LABS: BILIRUBIN,URINE NEGATIVE (NEG); CLARITY,URINE CLEAR; COLOR,URINE YELLOW
[2022-02-11 13:25] LABS: BACTERIA,URINE MOD /HPF (0-FEW); BARBITURATES NEG (NEG); BENZODIAZEPINES NEG (NEG); CANNABINOIDS NEG (NEG); COCAINE NEG (NEG); METHADONE NEG (NEG); NITRITE,URINE NEGATIVE (NEG); OPIATES NEG (NEG); PHENCYCLIDINE NEG (NEG); PROTEIN,URINE NEGATIVE (NEG-TRACE); RBC,URINE 0 /HPF (0-2); UROBILINOGEN,URINE 0.2 mg/dL (0.2 mg/dL)
[2022-02-11 13:27] LABS: AMPHETAMINE/METHAMPHETAMINE NEG (NEG)
[2022-02-11] MEDS ORDERED: CONTRAST GIVEN. MC PRN (13:30)
[2022-02-11 13:31] LABS: CALCIUM 8.6 mg/dL (8.5-10.1); CREATININE 0.8 mg/dL (0.6-1.0); GFR 104.1; POTASSIUM 3.6 mmol/L (3.5-5.1)
[2022-02-11 13:37] LABS: ALBUMIN 3.3 g/dL (3.4-5.0); ALBUMIN/GLOBULIN RATIO 0.9 (1.0-1.7); TOTAL BILIRUBIN 0.3 mg/dL (0.2-1.0); TOTAL PROTEIN 6.9 g/dL (6.4-8.2)
--- NOTE | 2022-02-11 13:45 | PHYS DOC ---
Past Medical History Past Medical History: Anxiety, Bipolar, Depression Past Surgical History: No Surgical History Smoking Status: Never Smoker Alcohol Use: None Drug Use: None Adult General Chief Complaint Chief Complaint: NAUSEA/VOMITING/DIARRHEA HPI HPI Patient is a 26 year old female presenting to the emergency department for evaluation of abdominal pain nausea vomiting that has been going on for the past 2 days. She says that the pain is epigastric and does not radiate and the emesis is nonbloody nonbilious but it occurs every time after she eats food she starts vomiting within minutes. She says that she has had no abdominal surgeries before in the past she has diarrhea constipation dysuria hematuria vaginal bleeding vaginal discharge Or any prior abdominal surgeries. Patient sa ys she has had 7 children and does not think that she is but is unsure. She is in no acute distress with normal vital signs. Review of Systems Review of Systems Constitutional: Denies fever or chills [] Eyes: Denies change in visual acuity, redness, or eye pain [] HENT: Denies nasal congestion or sore throat [] Respiratory: Denies cough or shortness of breath [] Cardiovascular: No additional information not addressed in HPI [] GI: + abdominal pain, nausea, vomiting. No bloody stools or diarrhea [] : Denies dysuria or hematuria [] Musculoskeletal: Denies back pain or joint pain [] Integument: Denies rash or skin lesions [] Neurologic: Denies headache, focal weakness or sensory changes [] All other systems were reviewed and found to be within normal limits, except as documented in this note. Current Medications Current Medications Current Medications Medications (Trade) Dose Ordered Sig/Christi Start Time Stop Time Status Last Admin Dose Admin Info (CONTRAST GIVEN -- Rx MONITORING) 1 each PRN DAILY PRN 02/11/22 13:30 02/13/22 13:29 Iohexol (Omnipaque 300 Mg/ml) 75 ml 1X ONCE 02/11/22 13:15 02/11/22 13:21 DC 02/11/22 13:38 75 ML Morphine Sulfate (Morphine Sulfate) 4 mg 1X PRN 02/11/22 13:00 02/11/22 13:18 4 MG Ondansetron HCl (Zofran) 4 mg 1X ONCE 02/11/22 15:00 02/11/22 15:10 DC 5/4/22 15:16 4 MG Sodium Chloride 1,000 ml @ 1,000 mls/hr 1X ONCE 02/11/22 13:00 02/11/22 13:59 DC 02/11/22 13:19 1,000 MLS/HR Allergies Allergies Allergies Coded Allergies Type Severity Reaction Last Updated Verified peanut Allergy Intermediate itching 10/16/16 Yes Physical Exam Physical Exam Constitutional: Well developed, well nourished, no acute distress, non-toxic appearance. [] HENT: Normocephalic, atraumatic, bilateral external ears normal, oropharynx moist, no oral exudates, nose normal. [] Eyes: PERRLA, EOMI, conjunctiva normal, no discharge. [] Neck: Normal range of motion, no tenderness, supple, no stridor. [] Cardiovascular:Heart rate regular rhythm, no murmur [] Lungs & Thorax: Bilateral breath sounds clear to auscultation [] Abdomen: Bowel sounds normal, soft, positive epigastric tenderness, no rebound or guarding Skin: Warm, dry, no erythema, no rash. [] Back: No tenderness, no CVA tenderness. [] Extremities: No tenderness, no cyanosis, no clubbing, ROM intact, no edema. [] Neurologic: Alert and oriented X 3, normal motor function, normal sensory function, no focal deficits noted. [] Current Patient Data Vital Signs Vital Signs Date Time Temp Pulse Resp B/P (MAP) Pulse Ox O2 Delivery O2 Flow Rate FiO2 02/11/22 14:14 16 99 Room Air 02/11/22 13:06 98.4 102 146/82 (103) 98.4 Lab Values Laboratory Tests Test 02/11/22 12:55 02/11/22 13:00 02/11/22 13:07 Urine Collection Type Unknown Urine Color Yellow Urine Clarity Clear Urine pH 6.0 Urine Specific [place] >=1.030 Urine Protein Negative mg/dL (NEG-TRACE) Urine Glucose (UA) Negative mg/dL (NEG) Urine Ketones (Stick) Negative mg/dL (NEG) Urine Blood Negative (NEG) Urine Nitrite Negative (NEG) Urine Bilirubin Negative (NEG) Urine Urobilinogen Dipstick 0.2 mg/dL (0.2 mg/dL) Urine Leukocyte Esterase Trace (NEG) Urine RBC 0 /HPF (0-2) Urine WBC 1-4 /HPF (0-4) Urine Squamous Epithelial Cells Mod /LPF Urine Bacteria Mod /HPF (0-FEW) Urine Mucus Mod /LPF Urine Opiates Screen Neg (NEG) Urine Methadone Screen Neg (NEG) Urine Barbiturates Neg (NEG) Urine Phencyclidine Screen Neg (NEG) Urine Amphetamine/Methamphetamine Neg (NEG) Urine Benzodiazepines Screen Neg (NEG) Urine Cocaine Screen Neg (NEG) Urine Cannabinoids Screen Neg (NEG) Urine Ethyl Alcohol Neg (NEG) White Blood Count 13.1 x10^3/uL (4.0-11.0) H Red Blood Count 5.35 x10^6/uL (3.50-5.40) Hemoglobin 14.7 g/dL (12.0-15.5) Hematocrit 44.4 % (36.0-47.0) Mean Corpuscular Volume 83 fL (79-100) Mean Corpuscular Hemoglobin 28 pg (25-35) Mean Corpuscular Hemoglobin Concent 33 g/dL (31-37) Red Cell Distribution Width 14.3 % (11.5-14.5) Platelet Count 309 x10^3/uL (140-400) Neutrophils (%) (Auto) 69 % (31-73) Lymphocytes (%) (Auto) 27 % (24-48) Monocytes (%) (Auto) 3 % (0-9) Eosinophils (%) (Auto) 1 % (0-3) Basophils (%) (Auto) 0 % (0-3) Neutrophils # (Auto) 8.9 x10^3/uL (1.8-7.7) H Lymphocytes # (Auto) 3.5 x10^3/uL (1.0-4.8) Monocytes # (Auto) 0.4 x10^3/uL (0.0-1.1) Eosinophils # (Auto) 0.1 x10^3/uL (0.0-0.7) Basophils # (Auto) 0.0 x10^3/uL (0.0-0.2) Sodium Level 138 mmol/L (136-145) Potassium Level 3.6 mmol/L (3.5-5.1) Chloride Level 103 mmol/L (98-107) Carbon Dioxide Level 27 mmol/L (21-32) Anion Gap 8 (6-14) Blood Urea Nitrogen 7 mg/dL (7-20) Creatinine 0.8 mg/dL (0.6-1.0) Estimated GFR (Cockcroft-Gault) 104.1 BUN/Creatinine Ratio 9 (6-20) Glucose Level 108 mg/dL (70-99) H Calcium Level 8.6 mg/dL (8.5-10.1) Total Bilirubin 0.3 mg/dL (0.2-1.0) Aspartate Amino Transferase (AST) 13 U/L (15-37) L Alanine Aminotransferase (ALT) 21 U/L (14-59) Alkaline Phosphatase 87 U/L (46-116) Total Protein 6.9 g/dL (6.4-8.2) Albumin 3.3 g/dL (3.4-5.0) L Albumin/Globulin Ratio 0.9 (1.0-1.7) L Lipase 71 U/L (73-393) L POC Urine HCG, Qualitative Hcg negative (Negative) Laboratory Tests 02/11/22 13:00 Laboratory Tests 02/11/22 13:00 EKG EKG [] Radiology/Procedures Radiology/Procedures [] Course & Med Decision Making Course & Med Decision Making I will check labs and imaging treat symptoms and reassess. Imaging came back negative for acute process and her labs are unremarkable for acute process as well. She was given supportive medications and she said her pain and nausea completely resolved and she was drinking water and eating crackers with no difficulty and she said she would like to go home. I discussed all incidental findings on labs and imaging and the need for follow-up with primary care provider within the next 2 to 3 days. I told patient to drink plenty of fluids and take in a soft nonirritating diet and come back to emergency department sooner with worsening pain fevers vomiting or other general concerns. Patient aware and agreeable with plan for discharge and verbalized understanding the need for short-term follow-up and strict ED return precautions discussed as above. Dragon Disclaimer Dragon Disclaimer This electronic medical record was generated, in whole or in part, using a voice recognition dictation system. Departure Departure Impression: Primary Impression: Abdominal pain Additional Impressions: Nausea and vomiting in adult Leukocytosis Disposition: HOME / SELF CARE / HOMELESS Condition: STABLE Referrals: NO PCP (PCP) Patient Instructions: Gastritis, Adult Scripts Omeprazole (OMEPRAZOLE) 40 Mg Capsule.dr 1 CAP PO DAILY, #30 CAP 0 Refills Prov: SANDOVAL BUCHANAN DO 02/11/22 Ondansetron (ONDANSETRON ODT) 4 Mg Tab.rapdis 1 TAB PO PRN Q6-8HRS, #16 TAB Prov: SANDOVAL BUCHANAN DO 02/11/22 Hydrocodone Bit/Acetaminophen (HYDROCODONE-APAP 5-325 ) 1 Tab Tablet 1 TAB PO PRN Q6HRS PRN for PAIN, #10 TAB 0 Refills Prov: SANDOVAL BUCHANAN DO 02/11/22 Problem Qualifiers Primary Impression: Abdominal pain Abdominal location: epigastric Qualified Codes: R10.13 - Epigastric pain SANDOVAL BUCHANAN DO February 11, 2022 13:45
--- NOTE | 2022-02-11 14:13 | RAD ---
CT abdomen pelvis with contrast dated 02/11/2022. COMPARISON: 04/18/2021. INDICATION: Epigastric pain for 2 days. TECHNIQUE: Continues axial imaging the abdomen pelvis performed after the administration of 75 cc Omnipaque 300. One or more of the following individualized dose reduction techniques were utilized for this examinat ion: 1. Automated exposure control 2. Adjustment of the mA and/or kV according to patient size 3. Use of iterative reconstruction technique FINDINGS: Limited images of lung bases are clear. Heart size within normal limits. No pleural or pericardial ef fusion. Liver is of diffuse low density compatible with fatty infiltration. No apparent mass. No biliary duct al dilatation. Gallbladder unremarkable. Spleen is normal in size. Pancreas, adrenal glands and kidneys are unremarkable. No hydronephrosis. Unopacified GI tract normal in caliber and contour. No bowel wall thickening. No inflammatory strandi ng in the mesentery. The appendix is normal in caliber. No ascites or lymphadenopathy. Abdominal aort a normal in caliber. Images of the pelvis show nondistended urinary bladder. Uterus and adnexa are unremarkable. No free f luid or lymphadenopathy. Prominent left ovarian vein, unchanged. Bone window show no acute findings. IMPRESSION: 1. No acute abnormality of abdomen or pelvis. Normal appendix. 2. Mild fatty infiltration of the liver. Electronically signed by: Guillermo Enamorado MD (02/11/2022 2:11 PM) [facility]
[2022-02-11] MEDS ORDERED: OMEP40CA7 PO (15:53)
[2022-02-11] MEDS ORDERED: HYDR-2761 PO (15:53)
[2022-02-11] MEDS ORDERED: ONDA4TAB12 PO (15:53)
== END 2022-02-11 16:07 | disposition home or self-care (01) ==
LOC: ER 12:42
DX: R10.13 Epigastric pain (principal); R11.2 Nausea with vomiting, unspecified; D72.829 Elevated white blood cell count, unspecified; F31.9 Bipolar disorder, unspecified; Z91.010 Allergy to peanuts
CPT/HCPCS: 36415; 74177; 80053; 80307; 81001; 81025; 83690; 85025; 87086; 96361; 96374; 96375; 96376; 99285; J2270; J2405; J7030; Q9967